=== PATIENT | male | born 1955 | race Caucasian/White ===

== ENCOUNTER 2023-05-10 16:31 | Emergency (ER) | payer OTHER, MEDICARE, SELFPAY ==
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
[2023-05-10 17:18] VITALS: BP 168/75; PULSE 76; RESP 18; TEMP 36.6; O2SAT 97
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
[2023-05-10 18:48] VITALS: BP 145/85; PULSE 77; RESP 15; O2SAT 98
[2023-05-10 18:49] VITALS: BP 145/85; PULSE 80; RESP 14; TEMP 36.8; O2SAT 98
[2023-05-10 19:56] LABS: Estimated Glomerular Filt Rate > 60
[2023-05-10 20:52] VITALS: BP 164/92; PULSE 77; RESP 15; TEMP 36.7; O2SAT 99
== END 2023-05-10 20:53 | disposition home or self-care (01) ==
PROVIDERS: Emergency Provider Physician Assistant; PCP Physician Assistant
DX: S22.42XA Multiple fractures of ribs, left side, initial encounter for closed fracture (principal); M54.2 Cervicalgia; R51.9 Headache, unspecified; M25.512 Pain in left shoulder; V49.40XA Driver injured in collision with unspecified motor vehicles in traffic accident, initial encounter; Y92.488 Other paved roadways as the place of occurrence of the external cause
CPT/HCPCS: 70450; 71046; 71110; 71260; 72125; 73030; 73600; 73630; 74177; 99284; Q9967

== ENCOUNTER 2023-06-14 11:54 | Outpatient (CLI) | payer MEDICARE, OTHER, SELFPAY ==
--- NOTE | ~2023-06-14 | CT_ITS ---
EXAMINATION: CT wrist RT wo con DATE: 06/14/2023 12:07 INDICATION: Right wrist pain TECHNIQUE: High resolution computed tomography (CT) of the right wrist was performed without intraven ous contrast. Additional sagittal and coronal reconstructions were performed. Automated exposure cont rol and iterative reconstruction technique were employed. The dose-length product was 91.61 mGy-cm. COMPARISON: None FINDINGS: Postoperative change of prior first carpal metacarpal suspension arthroplasty with resection of the t rapezium and likely partial resection of the trapezoid. There are some small residual bone fragments at the resection bed. The base of the first metacarpal has migrated proximally and articulates with t he distal pole of the scaphoid with severe secondary osteoarthritis with subarticular cystlike change s at both sides of the articulation. Attempted arthrodesis across the base of the second and third metacarpals with compression screw fixa tion but without evident osseous bridging. There is severe osteoarthritis at the articulation between the base of the second metacarpal and the adjacent distal capitate and base of the third metacarpal. No acute fractures. Additional polyarticular osteoarthritis, moderate severity at the distal radiouln ar and fourth metacarpophalangeal joints and mild at the wrist, midcarpal, first interphalangeal and remaining metacarpophalangeal joints. IMPRESSION: 1. Postoperative change of prior first carpal metacarpal suspension arthroplasty with resection of th e trapezium and partial resection of the trapezoid. 2. Proximal migration of the first metacarpal base into the resection bed with severe secondary arthr itis at its articulation with the distal pole of the scaphoid. 3. Attempted instrumented arthrodesis across the base of the second and third metacarpals which appea rs to remain ununited with severe osteoarthritis at the articulations of the second metacarpal base w ith the capitate and third metacarpal. 4. Additional mild to moderate polyarticular osteoarthritis at the right hand and wrist as detailed a mayra. Reviewed, dictated and finalized at location A. IMPRESSION: 1. Postoperative change of prior first carpal metacarpal suspension arthroplast y with resection of the trapezium and partial resection of the trapezoid. 2. Proximal migration of the first metacarpal base into the resection bed with severe secondary arthritis at its articulation with the distal pole of the scap hoid. 3. Attempted instrumented arthrodesis across the base of the second and third m etacarpals which appears to remain ununited with severe osteoarthritis at the a rticulations of the second metacarpal base with the capitate and third metacarp al. 4. Additional mild to moderate polyarticular osteoarthritis at the right hand a nd wrist as detailed above.
== END 2023-06-14 11:55 ==
DX: M18.11 Unilateral primary osteoarthritis of first carpometacarpal joint, right hand (principal); M19.041 Primary osteoarthritis, right hand
CPT/HCPCS: 73200

== ENCOUNTER 2023-08-23 14:45 | Emergency (ER) | payer MEDICARE, OTHER, SELFPAY ==
[2023-08-23] VITALS (8 sets, daily range): BP systolic 148–180; BP diastolic 78–95; PULSE 65–90; RESP 10–18; TEMP 36.9; O2SAT 98–100
--- NOTE | ~2023-08-23 | CT_ITS ---
EXAMINATION: CT abdomen pelvis w con DATE: 08/23/2023 18:01 INDICATION: right sided abd pain, flank pain TECHNIQUE: Computed tomography (CT) of the abdomen and pelvis was performed with 100 mL Omnipaque-350 intravenous contrast. Automated exposure control and iterative reconstruction technique were employe d. The dose-length product was 224.48 mGy-cm. COMPARISON: CT cap 05/10/2023; CT abdomen pelvis 05/06/2018. FINDINGS: Lower thorax: Stable right lower lobe granuloma. Liver: Normal. Biliary/Gallbladder: Gallbladder is absent. Mild extrahepatic bile duct dilation likely related to ch olecystectomy. Pancreas: Mild atrophy. Spleen: Normal. Adrenals:No mass. Kidneys: Moderate right perinephric stranding, mild right hydronephrosis, delayed right nephrogram. M ultiple punctate nonobstructing right calculi. Normal left kidney. GI tract: Surgical clips at the GE junction. No small or large bowel dilation. Normal appendix. Mesentery/Peritoneum: No ascites, mass, or free air. Retroperitoneum: No mass. Atherosclerotic abdominal aortic and/or arterial calcifications. Pelvis: Mild bladder wall thickening in a moderately distended urinary bladder. Mild prostatomegaly. 3 mm calcification in the distal right UVJ. Soft Tissues: Soft tissues and body wall unremarkable. Bones: No acute osseous finding. IMPRESSION: 3 mm right UVJ stone causing mild obstructive uropathy. Cystitis versus wall thickening from chronic outlet obstruction. Correlate with urinalysis. Reviewed, dictated and finalized at location K.
--- NOTE | 2023-08-23 17:14 | ED.ABDPAIN ---
HPI - Abdominal Pain General Chief Complaint: Urogenital-Male Stated Complaint: r flank pain, r testicle pain Time Seen by Provider: 08/23/23 17:03 Source: patient Mode of arrival: ambulatory Limitations: no limitations History of Present Illness HPI narrative: This 67-year-old male that presents to the emergency department for right-sided abdominal pain. Ongoing intermittently over the last couple of days. Reports worsening after going on a walk today. The pain radiates from his right flank, to his right lower quadrant into his testicle sometimes. Associated with nausea. Denies fevers, vomiting, dysuria, or hematuria. Related Data Allergies Allergy/AdvReac Type Severity Reaction Status Date / Time No Known Allergies Allergy Verified 05/10/23 18:48 Review of Systems Review of Systems: CONSTITUTIONAL: Denies fever GASTROINTESTINAL: Reports abdominal pain, nausea. Denies vomiting GENITOURINARY: Denies dysuria or hematuria. All systems reviewed & are unremarkable except as noted in HPI and below PMFSH Past Medical History Medical History (Updated 08/23/23 @ 20:41 by Graciela Thomas PA-C) Dyslipidemia History of hypothyroidism Family History Family History (Updated 06/24/18 @ 13:46 by DOCTOR UNKNOWN) Father Family history of malignant neoplasm Family history of alcoholism Mother Family history of kidney disease Family history of Alzheimer's disease Family history of congestive heart failure Hypertension Other Family history of allergic disorder Social History Social History Smoking status: Never smoker Alcohol intake: current Exam Narrative: GENERAL: Well-appearing, well-nourished, and in no acute distress. HEAD: Normocephalic, atraumatic. EYES: EOMI. CHEST: Clear to auscultation. No respiratory distress. No wheezes rales or rhonchi HEART: Regular rate and rhythm. No murmur heard. Normal peripheral pulses. ABDOMEN: Soft, nontender, nondistended, normal active bowel sounds. No CVA tenderness EXTREMITIES: Normal range of motion. No edema. SKIN: Warm, dry, no rash. NEURO: No focal deficits. Alert and oriented x3. PSYCH: Normal mood and affect Course Course Emergency Course: patient updated on his workup and agrees with plan of care Vital Signs Vital signs: Vital Signs Temperature 98.4 F 08/23/23 14:48 Pulse Rate 90 08/23/23 14:48 Respiratory Rate 17 08/23/23 14:48 Blood Pressure 180/95 H 08/23/23 14:48 Pulse Oximetry 99 08/23/23 14:48 Oxygen Delivery Room Air 08/23/23 14:48 Temperature 98.4 F 08/23/23 14:48 Pulse Rate 67 08/23/23 16:47 Respiratory Rate 15 08/23/23 16:47 Blood Pressure 164/82 H 08/23/23 16:47 Pulse Oximetry 99 08/23/23 16:47 Oxygen Delivery Room Air 08/23/23 14:48 MDM - Abdominal Pain MDM Narrative Medical decision making narrative: Patient presents to the emergency department for right-sided flank and abdominal pain. Ongoing intermittently over the last couple of days. He is afebrile and nontoxic appearing. Hypertensive upon arrival, this improved with management of his pain. CBC and metabolic panel without concerning findings. Urine without evidence of infection. CT abdomen and pelvis shows a 3 mm stone at the right UVJ. Patient was updated on his workup and agrees with plan of care. Reports relief after IV fluids and morphine. Will be given follow-up with urology. He was given warnings to return to the ER Patient did experience some epigastric discomfort while in the ED. This was relieved with a GI cocktail. EKG without acute ST changes and his baseline troponin is negative Differential Diagnosis Differential diagnosis: Likely acute appendicitis, calculus of kidney and other (GERD, esophagitis) Lab Data Attestation: I reviewed the patient's lab results. 08/23/23 17:22 08/23/23 17:22 Labs: Lab Results 08/23/23 08/23/23 08/23/23 Range/Units 17:13 17:22
[2023-08-23 17:20] LABS: Appearance Urine Clear (Clear); Bilirubin Urine Negative (Negative); Blood Urine Negative (Negative); Color Urine Yellow (Yellow); Glucose Urine UA Negative (Negative); Ketones Urine Negative (Negative); Leukocyte Esterase Ur Negative LEU/UL (Negative); Nitrate Urine Negative (Negative); Protein Urine Negative (Negative); Specific Grav Ur 1.016 (1.001-1.035); pH Urine 6.5 (5.0-9.0)
--- NOTE | 2023-08-23 17:25 | PC.NURSE ---
Patient drinks 10-12 beers a day along with multiple shots of whiskey. patient reports last drink as last night around 9 or 10 pm
[2023-08-23 17:30] LABS: Basophils Absolute Auto 0.1 K/mm3 (0.0-0.1); Basophils Percent Auto 0.6 % (0.2-1.2); Eosinophils Percent Auto 0.4 % (0-4.4); Hematocrit 45.3 % (42.0-52.0); Hemoglobin 16.5 g/dL (14.0-18.0); Immature Granulocyte Absolute 0.03 K/mm3 (0.00-0.031); Immature Granulocyte Percent A 0.3 % (0-0.5); Immature Platelet Fraction Pct 2.2 % (0.9-11.2); Lymphocytes Absolute Auto 0.65 K/mm3 (0.9-3.2); Lymphocytes Percent Auto 7.3 % (18.3-44.2); Mean Corpuscular HGB Conc 36.4 g/dl (32-36); Mean Corpuscular Hemoglobin 31.4 pg (26-34); Mean Corpuscular Volume 86.3 fl (80-100); Mean Platelet Volume 9.3 fl (7.4-10.4); Monocytes Absolute Auto 0.7 K/mm3 (0.1-0.6); Monocytes Percent Auto 7.5 % (2.6-8.5); Neutrophils Absolute Auto 7.5 K/mm3 (1.3-6.7); Neutrophils Percent Auto 83.9 % (45.5-73.1); Platelet Count Result 152 k/mm3 (150-375); Red Blood Count 5.25 M/mm3 (4.6-6.20); Red Cell Distribution Width 12.4 % (11.5-14.5); White Blood Count 8.9 K/mm3 (4.5-10.0)
[2023-08-23 17:39] LABS: Alanine Aminotransferase 48 U/L (6-50); Albumin Level 4.8 g/dL (3.5-5.1); Alkaline Phosphatase 72 U/L (38-126); Anion Gap 7 mmol/L (4-12); Aspartate Amino Transferase 54 U/L (17-59); Bilirubin,Total 1.7 mg/dL (0.2-1.3); Blood Urea Nitrogen 23 mg/dL (9-20); Calcium 9.4 mg/dL (8.4-10.2); Carbon Dioxide 28 mmol/L (22-30); Chloride 102 mmol/L (98-107); Estimated CRCL calculation 58 ml/min; Estimated Glomerular Filt Rate > 60; Glucose 107 mg/dL (65-110); Lipase 74 U/L (23-300); Potassium 4.2 mmol/L (3.4-5.0); Sodium 137 mmol/L (137-145)
[2023-08-23 17:44] LABS: Add Urine Microscopic? NO
[2023-08-23] MEDS: ONDANSETRON INJ 4 MG/2 ML VIAL IV PUSH (18:08)
[2023-08-23] MEDS: SODIUM CHLORIDE 0.9% IV 1,000 ML 999 ML IV CONT (18:09)
[2023-08-23] MEDS: MORPHINE SULFATE (*CRX) 4 MG/ML INJ IV PUSH (18:09)
--- NOTE | 2023-08-23 18:45 | ECG_ITS ---
Test Date: 2023-08-23 18:52:55 Measurements Intervals Girard Rate: 72 P: 68 SD: 162 QRS: 51 QRSD: 81 T: 49 QT: 365 QTc: 401 Interpretive Statements SINUS RHYTHM NORMAL ECG No previous ECG available for comparison Electronically Signed On 08-23-2023 20:27:11 CDT by Jeramy Owens D.O.
[2023-08-23] MEDS: PANTOPRAZOLE SODIUM IV 40 MG VIAL IV PUSH (19:15)
[2023-08-23] MEDS: BELLADONNA ALK/PHENOB ELIX 10 ML, MAG HYDROX/ALUMINUM HYD/SIMETH 30 ML, LIDOCAINE HCL 2... PO (19:54)
[2023-08-23 20:11] LABS: Troponin I < 0.012 ng/mL (0.000-0.034)
== END 2023-08-23 21:00 | disposition home or self-care (01) ==
PROVIDERS: Emergency Provider Physician Assistant; PCP Physician Assistant
DX: N20.0 Calculus of kidney (principal)
CPT/HCPCS: 36415; 74177; 80053; 81003; 83690; 84484; 85025; 85055; 93005; 96361; 96374; 96375; 99284; A9270; J2270; J2405; J2470; J7030; Q9967

== ENCOUNTER 2024-07-13 10:08 | Outpatient (CLI) | payer MEDICARE, OTHER, SELFPAY ==
--- NOTE | ~2024-07-13 | MR_ITS ---
MRI of the cervical spine Clinical History: Spondylosis Technique: Axial T2-weighted and gradient images, and sagittal T1-weighted, T2-weighted, and STIR elida ges were acquired. Findings: No fracture seen. There is 3 mm retrolisthesis of C3 over C4. No suspicious bone marrow sig nal abnormality seen. At C2-C3, there is no disc bulge or herniation. No spinal canal stenosis, cord compression, or neural foraminal narrowing. At C3-C4, there is moderate degenerative disc narrowing with mild disc bulge. No armani spinal canal s tenosis or cord compression. There is moderate right neural foraminal narrowing. Left neural foramen probably preserved. At C4-C5, there is right facet arthropathy with right neural foraminal narrowing. Left neural foramen preserved. No canal stenosis or cord compression. At C5-C6, there is moderate degenerative disc narrowing. There is minimal disc bulge. There is right neural foraminal narrowing and possible minimal left neural foraminal narrowing. No canal stenosis or cord compression. At C6-C7, there is moderate degenerative disc narrowing. No spinal canal stenosis, cord compression, or neural foraminal narrowing. No abnormal signal seen in the spinal cord. Paravertebral soft tissues are unremarkable. Impression: Mild to moderate degenerative change overall, as detailed above. 3 mm retrolisthesis of C3 over C4. Reviewed, dictated and finalized at [facility]. Impression: Mild to moderate degenerative change overall, as detailed above. 3 mm retrolisthesis of C3 over C4.
== END 2024-07-13 10:09 | disposition home or self-care (01) ==
LOC: MICIMG 10:10
PROVIDERS: PCP Physician Assistant; Visit Provider Physician Assistant
DX: M47.812 Spondylosis without myelopathy or radiculopathy, cervical region (principal); M43.12 Spondylolisthesis, cervical region
CPT/HCPCS: 72141

== ENCOUNTER 2024-07-13 16:21 | Outpatient (CLI) | payer MEDICARE, OTHER, SELFPAY ==
--- NOTE | ~2024-07-13 | US_ITS ---
EXAMINATION: US carotid duplex BI DATE: 07/13/2024 17:02 INDICATION: Carotid atherosclerosis TECHNIQUE: Grayscale, color Doppler, and pulsed Doppler images of the cervical carotid arteries were obtained. The degree of vessel stenosis is placed in one of the following categories: normal, <50%, 5 0-69%, >=70% but less than near-occlusion, near-occlusion, or total occlusion. Note that percent sten osis relative to normal distal artery lumen diameter is indirectly measured from velocity measurement s as described by Des, et al. Radiology 2003; [id number]:[id number]. COMPARISON: None. FINDINGS: RIGHT: The right common carotid artery (CCA) peak systolic velocity (PSV) is 89 cm/s. The right internal car otid artery (ICA) PSV is 137 cm/s. The right ICA end-diastolic velocity (EDV) is 29 cm/s. The right I CA/CCA PSV ratio is 1.5. Grayscale and color Doppler images including secondary Doppler criteria yiel d an estimate of <50% diameter reduction from plaque in the ICA. The external carotid artery (ECA) PS V is 104 cm/s. There is antegrade flow in the right vertebral artery. LEFT: The left CCA PSV is 93 cm/s. The left ICA PSV is 68 cm/s. The left ICA EDV is 22 cm/s. The left ICA/C CA PSV ratio is 0.7. Grayscale and color Doppler images yield an estimate of <50% diameter reduction from plaque in the ICA. The ECA PSV is 123 cm/s. There is antegrade flow in the left vertebral artery . IMPRESSION: 1. <50% stenosis in the right internal carotid artery. 2. <50% stenosis in the left internal carotid artery. Reviewed, dictated and finalized at location A.
--- OUTSIDE RECORDS SUMMARY | 2024-07-13 16:38 | XMS_ITS | Clinical Summary ---
Author Organization [facility] Address [address] [place] [address] Care Team Providers Care [employer] Grinder Name Role Phone Gurdeep Escobedo MD Primary Care Provider [phone] Source Comments [facility],non-owned Affiliates and Associated Physician Practices is amultiple site organization consisting of ambulatory clinics and hospital sitesin [place], [place], [place]. This disclosure is being madepursuant to the Care Everywhere program and may not contain all information available regarding this patient. Last updated 17.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 Gender Identity Not on file Sexual Orientation Not on file Plan of Treatment Health Maintenance Due Date Last Done Comments COLOGUARD (AGES 45-75) - COL ON CA SCREENING [address] COLONOGRAPHY - COLON CA SCREENING 1955 FIT - COLON CA SCREENING 1955 FLEX SIG - COLON CA SCREENING 1956 LIPID TESTING 1956 HEPATITIS C SCREENING 09/23/1974 DTAP/TDAP/TD VACCINES (1 - Tdap) 09/28/1975 PNEUMOCOCCAL VACCINE 50+ (1 of 1 - PCV) 2006 ZOSTER VACCINE (1 of 2) 2006 COLONOSCOPY - COLON CA SCREENING 07/01/2015 06/30/2005 (Previously completed) Colorectal Cancer Screening 07/01/2015 COVID-19 VACCINE ( - 2023-2 5 season) 2023 DEPRESSION SCREENING 02/23/2024 INFLUENZA VACCINE (Season Ended) 2024 Respiratory Syncytial Virus (RSV) Vaccine Pt: or over 60 yrs (1 - 1-dose 75+ series) 09/28/2031 HEPATITIS B VACCINE Aged Out No longe r eligible based on patient's age to complete this topic HIB VACCINE Aged Out No longer eligi ble based on patient's age to complete this topic HPV VACCINE Aged Out No longer eligi ble based on patient's age to complete this topic MENINGOCOCCAL (Group B) VACCINE SHARED DECISION-MAKING Aged Out No longer eligible based on patient's age to complete this topic MENINGOCOCCAL GROUPS A/C/Y/W VACCINE Aged Out No longer eligible b ased on patient's age to complete [place] [address] [place] [address] MEDICARE Care Teams [employer]inder Relationship Specialty Start Date End Date Gurdeep Escobedo MD [address] [place] [phone] PCP - General Internal Medicine 04/23/15
--- OUTSIDE RECORDS SUMMARY | 2024-07-13 16:38 | XMS_ITS | Data Portability ---
Author Organization [facility] Address [address] [place] [address] Care Team Providers Care Manager Placement Name Role Phone JONATHAN BOOTH Primary Care Provider Unavailab le Assessment No assessment recorded. Plan of Treatment Reminders Order Date Submit Date Provider Last Modified By Organization Details Last Modified Time Details Appointments ANY 15 2024 09:30A M LARON Jennings Not available Not available Not available Lab TSH + free T4, serum 2024 025 [email or web address] [facility], [address], [place], [address], 04/14/2024 10:05:47 TSH + free T4, serum 2023 025 TAMMY Sanabria, [address], [place], [address], 04/11/2024 09:08:20 BMP, serum or plasma 2023 024 TAMMY Sanabria, [address], [address], [place], [address], 07/23/2023 10:14:12 TSH + free T4, serum 2023 024 TAMMY Sanabria, [address], [address], [place], [address], 07/23/2023 10:14:11 TSH + free T4, serum 2023 024 TAMMY Sanabria, [address], [address], [place], [address], 01/11/2024 07:37:36 Referral None recorded. Procedures None recorded. Surgeries None recorded. Imaging CT, chest, w/o contrast 2023 024 [facility] (Imaging), [address], [place], [address], 11/09/2023 16:15:54 Medication Orders None recorded. Patient TargetsNo targets recorded. Patient InstructionsNo instructions recorded. Reason for Referral None Reported. Results Created Date Observation Date Name Description Value Unit Range Abnormal Flag Note LastModifiedBy Organization Detail LastModifiedTime 07/22/19 24 07/23/2023 TSH+F REE T4 TSH 0.269 uIU/m L 0.450- 4.500 below low normal Not Available [facility] ([facility]) [address] [place], [address], 07/23/2023 10:14:11 07/22/19 24 07/23/2023 TSH+F REE T4 T4,free(dire ct) 1.77 NG/dL 0.82-1 .77 Not Available [facility] ([facility]) [address] [place], [address], 07/23/2023 10:14:11 07/22/19 24 07/23/2023 BMP7+ EGFR glucose 118 mg/dL 70-99 above high normal Not Available [facility] ([facility]) [address] [place], [address], 07/23/2023 10:14:12 07/22/19 24 07/23/2023 BMP7+ EGFR BUN 28 mg/dL 8-27 above high normal Not Available [facility] ([facility]) [address] [place], [address], 07/23/2023 10:14:12 07/22/19 24 07/23/2023 BMP7+ EGFR creatinine 0.72 mg/dL 0.76-1 .27 below low normal Not Available [facility] ([facility]) [address] [facility], [place], [address], 07/23/2023 10:14:12 07/22/19 24 07/23/2023 BMP7+ EGFR eGFR 101 mL/mi n/1.7 3 >59 Not Available [facility] ([facility]) [address] [facility], [place], [address], 07/23/2023 10:14:12 07/22/19 24 07/23/2023 BMP7+ EGFR sodium 138 mmol/ L 134-14 4 Not Available [facility] ([facility]) [address] [facility], [place], [address], 07/23/2023 10:14:12 07/22/19 24 07/23/2023 BMP7+ EGFR potassium 4.4 mmol/ L 3.5-5. 2 Not Available [facility] ([facility]) [address] [place], [address], 07/23/2023 10:14:12 07/22/19 24 07/23/2023 BMP7+ EGFR chloride 101 mmol/ L 96-106 Not Available [facility] ([facility]) [address] [facility], [place], [address], 07/23/2023 10:14:12 07/22/19 24 07/23/2023 BMP7+ EGFR carbon dioxide, total 25 mmol/ L 20-29 Not Available [facility] ([facility]) [address] [place], [address], 07/23/2023 10:14:12 11/27/19 24 11/27/2023 Refer ral lab test panel leukocytes [#/volume] in blood by automated count 4.44 text: 4.4 - 11.0 x10'3/ uL WBC 4.44 4.4 - 11.0 x10'3 /uL 11/26 12:22 PM CDT [facility] Not Available Not Available 04/14/2024 09:46:03 11/27/19 24 11/27/2023 Refer ral lab test panel erythrocytes [#/volume] in blood by automated count 5 text: 4.50 - 5.90 x10'6/ uL RBC 5.00 4.50 - 5.90 x10'6 /uL 11/26 12:22 PM CDT [facility] Not Available Not Available 04/14/2024 09:46:03 11/27/1911/27/2023 Refer ral lab test panel hemoglobin [mass/volume ] in blood 15.6 text: 14.0 - 17.5 g/dL HGB 15.6 14.0 - 17.5 G/DL 11/26 12:22 PM CDT [facility] Not Available Not Available 04/14/2024 09:46:03 11/27/1911/27/2023 Refer ral lab test panel hematocrit [volume fraction] of blood 44.6 % low: 41.5%h igh: 50.4% HCT 44.6 41.5 - 50.4 % 11/26 12:22 PM CDT [facility] Not Available Not Available 04/14/2024 09:46:03 11/27/19 24 11/27/2023 Refer ral lab test panel MCV [entitic volume] 89.2 text: 80.0 - 96.0 fL MCV 89.2 80.0 - 96.0 FL 11/26 12:22 PM CDT [facility] Not Available Not Available 04/14/2024 09:46:03 11/27/1911/27/2023 Refer ral lab test panel MCH [entitic mass] 31.2 pg low: 26.5pg high: 31.4pg MCH 31.2 26.5 - 31.4 PG 11/26 12:22 PM CDT [facility] Not Available Not Available 04/14/2024 09:46:03 11/27/1911/27/2023 Refer [facility] test panel MCHC [mass/volume ] 35 text: 31.9 - 34.8 g/dL high MCHC 35.0 (H) 31.9 - 34.8 G/DL 11/26 12:22 PM CDT [facility] Not Available Not Available 04/14/2024 09:46:03 11/27/19 24 11/27/2023 Refer [facility] test panel erythrocyte distribution width [entitic volume] by automated count 12 % low: 12.3%h igh: 14.3% low RDW 12.0 (L) 12.3 - 14.3 % 11/26 12:22 PM CDT [facility] Not Available Not Available 04/14/2024 09:46:03 11/27/19 24 11/27/2023 Refer [facility] test panel platelets [#/volume] in blood 146 text: 151 - 353 x10'3/ uL low PLT 146 (L) 151 - 353 x10'3 /uL 11/26 12:22 PM CDT [facility] Not Available Not Available 04/14/2024 09:46:03 11/27/1911/27/2023 Refer [facility] test panel platelet mean volume [entitic volume] in blood 10.2 text: 9.7 - 11.9 fL MPV 10.2 9.7 - 11.9 FL 11/26 12:22 PM CDT [facility] Not Available Not Available 04/14/2024 09:46:03 11/27/19 24 11/27/2023 Refer [facility] test panel erythrocytes [morphology] in blood by automated count NORMAL RBC MORPH OLOGY DOMONIQUE L 11/26 12:22 PM CDT [facility] Not Available Not Available 04/14/2024 09:46:03 11/27/19 24 11/27/2023 Refer [facility] test panel platelet morphology finding [identifier] in blood NORMAL PLT MORPH . DOMONIQUE L 11/26 12:22 PM CDT [facility] Not Available Not Available 04/14/2024 09:46:03 11/27/1911/27/2023 Refer [facility] test panel leukocyte morphology finding [identifier] in blood NORMAL WBC MORPH OLOGY DOMONIQUE L 11/26 12:22 PM CDT [facility] Not Available Not Available 04/14/2024 09:46:03 11/27/1911/27/2023 Refer [facility] test panel lymphocytes/ 100 leukocytes in blood by automated count 22.5 % low: 15.8%h igh: 45% LYMPH OCYTE S % 22.5 15.8 - 45.0 % 11/26 12:22 PM CDT [facility] Not [facility] Not Available 04/14/2024 09:46:03 11/27/1911/27/2023 Refer [facility] test panel neutrophils/ 100 leukocytes in blood by automated count 64.5 % low: 42.1%h igh: 71.9% NEUTR OPHIL S % 64.5 42.1 - 71.9 % 11/26 12:22 PM CDT [facility] Not Available Not Available 04/14/2024 09:46:03 11/27/1911/27/2023 Refer [facility] test panel monocytes/10 0 leukocytes in blood by automated count 9.9 % low: 5.7%hi gh: 12.5% MONOC YTES % 9.9 5.7 - 12.5 % 11/26 12:22 PM CDT [facility] Not Available Not Available 04/14/2024 09:46:03 11/27/1911/27/2023 Refer [facility] test panel eosinophils/ 100 leukocytes in blood by automated count 1.8 % low: 0%high : 5.6% EOSIN OPHIL S 1.8 0.0 - 5.6 % 11/26 12:22 PM CDT [facility] Not Available Not Available 04/14/2024 09:46:03 11/27/19 24 11/27/2023 Refer [facility] test panel basophils/10 0 leukocytes in blood by automated count 1.1 % low: 0%high : 1.3% BASOP HILS 1.1 0.0 - 1.3 % 11/26 12:22 PM CDT [facility] Not Available Not Available 04/14/2024 09:46:03 11/27/19 24 11/27/2023 Refer [facility] test panel neutrophils [#/volume] in blood 2.86 text: 1.40 - 6.00 x10'3/ uL ABS. NEUTR OPHIL S 2.86 1.40 - 6.00 x10'3 /uL 11/26 12:22 PM CDT [facility] Not Available Not Available 04/14/2024 09:46:03 11/27/1911/27/2023 Refer [facility] test panel immature granulocytes /100 leukocytes in blood by automated count 0.2 % low: 0%high : 0.5% IMMAT URE GRANS % 0.2 0.0 - 0.5 % 11/26 12:22 PM CDT [facility] Not Available Not Available 04/14/2024 09:46:03 11/27/19 24 11/27/2023 Refer [facility] test panel lymphocytes [#/volume] in blood 1 text: 0.80 - 4.70 x10'3/ uL ABS. LYMPH OCYTE S 1.00 0.80 - 4.70 x10'3 /uL 11/26 12:22 PM CDT [facility] Not Available Not Available 04/14/2024 09:46:03 11/27/19 24 11/27/2023 Refer [facility] test panel glucose [mass/volume ] in serum or plasma 107 text: 70 - 99 mg/dL high GLUCO SE 107 (H) 70 - 99 MG/DL 11/26 6:10 PM CDT [facility] Not Available Not Available 04/14/2024 09:46:03 11/27/19 24 11/27/2023 Refer ral lab test panel urea nitrogen [mass/volume ] in serum or plasma 19 text: 7 - 18 mg/dL high BUN 19 (H) 7 - 18 MG/DL 11/26 6:10 PM CDT [facility] Not Available Not Available 04/14/2024 09:46:03 11/27/19 24 11/27/2023 Refer ral lab test panel creatinine [mass/volume ] in serum or plasma 0.84 text: 0.7 - 1.3 mg/dL CREAT ININE S/P/B 0.84 0.7 - 1.3 MG/DL 11/26 6:10 PM CDT [facility] Not Available Not Available 04/14/2024 09:46:03 11/27/1911/27/2023 Refer ral lab test panel sodium [moles/volum e] in serum or plasma 136 text: 136 - 145 mmol/L SODIU M S/P/B 136 136 - 145 MMOL/ L 11/26 6:10 PM CDT [facility] Not Available Not Available 04/14/2024 09:46:03 11/27/19 24 11/27/2023 Refer ral lab test panel potassium [moles/volum e] in serum or plasma 4.3 text: 3.5 - 5.1 mmol/L POTAS SIUM S/P/B 4.3 3.5 - 5.1 MMOL/ L 11/26 6:10 PM CDT [facility] Not Available Not Available 04/14/2024 09:46:03 11/27/19 24 11/27/2023 Refer ral lab test panel chloride [moles/volum e] in serum or plasma 99 text: 100 - 108 mmol/L low CHLOR DELLA S/P/B 99 (L) 100 - 108 MMOL/ L 11/26 6:10 PM CDT [facility] Not Available Not Available 04/14/2024 09:46:03 11/27/1911/27/2023 Refer ral lab test panel carbon dioxide, total [moles/volum e] in serum or plasma 28.9 text: 21 - 32 mmol/L CO2 28.9 21 - 32 MMOL/ L 11/26 6:10 PM CDT [facility] Not Available Not Available 04/14/2024 09:46:03 11/27/19 24 11/27/2023 Refer ral lab test panel calcium [mass/volume ] in serum or plasma 8.9 text: 8.5 - 10.1 mg/dL CALCI UM S/P/B 8.9 8.5 - 10.1 MG/DL 11/26 6:10 PM CDT [facility] Not Available Not Available 04/14/2024 09:46:03 11/27/1911/27/2023 Refer ral lab test panel bilirubin.to kenton [mass/volume ] in serum or plasma 1.3 text: 0.2 - 1.2 mg/dL high BILIR UBIN TOTAL S/P/B 1.3 (H) 0.2 - 1.2 MG/DL 11/26 6:10 PM CDT [facility] Not Available Not Available 04/14/2024 09:46:03 11/27/19 24 11/27/2023 Refer ral lab test panel protein [mass/volume ] in serum or plasma 6.9 text: 6.4 - 8.2 g/dL TOTAL PROTE IN S/P/B 6.9 6.4 - 8.2 G/DL 11/26 6:10 PM CDT [facility] Not Available Not Available 04/14/2024 09:46:03 11/27/19 24 11/27/2023 Refer ral lab test panel albumin [mass/volume ] in serum or plasma 3.8 text: 3.4 - 5.0 g/dL ALBUM IN S/P/B 3.8 3.4 - 5.0 G/DL 11/26 6:10 PM CDT [facility] Not Available Not Available 04/14/2024 09:46:03 11/27/19 24 11/27/2023 Refer [facility] test panel aspartate aminotransfe rase [enzymatic activity/vol ume] in serum or plasma 34 U/L low: 15U/Lh igh: 37U/L AST 34 15 - 37 U/L 11/26 6:10 PM CDT [facility] ([facility] Not Available Not Available 04/14/2024 09:46:03 11/27/1911/27/2023 Refer [facility] test panel alanine aminotransfe rase [enzymatic activity/vol ume] in serum or plasma 29 U/L low: 16U/Lh igh: 60U/L ALT 29 16 - 60 U/L 11/26 6:10 PM CDT [facility] ([facility] Not Available Not Available 04/14/2024 09:46:03 11/27/19 24 11/27/2023 Refer [facility] test panel alkaline phosphatase [enzymatic activity/vol ume] in serum or plasma 66 U/L low: 50U/Lh igh: 136U/L ALKAL INE PHOSP HATAS E S/P/B 66 50 - 136 U/L 11/26 6:10 PM CDT [facility] () [facility] Not Available Not Available 04/14/2024 09:46:03 11/27/19 24 11/27/2023 Refer [facility] test panel anion gap in serum or plasma 8.1 text: 5 - 15 mmol/L ANION GAP 8.1 5 - 15 MMOL/ L 11/26 6:10 PM CDT [facility] Not Available Not Available 04/14/2024 09:46:03 11/27/19 24 11/27/2023 Refer [facility] test panel urea nitrogen/cre atinine [mass ratio] in serum or plasma 22.6 low: 6high: 26 BUN CREAT ININE RATIO 22.6 6 - 26 11/26 6:10 PM CDT [facility] Not Available Not Available 04/14/2024 09:46:03 11/27/19 24 11/27/2023 Refer ral lab test panel albumin/glob ulin [mass ratio] in serum or plasma 1.2 text: 1.0 - 2.0 ratio A/G RATIO 1.2 1.0 - 2.0 RATIO 11/26 6:10 PM CDT [facility] Not Available Not Available 04/14/2024 09:46:03 11/27/1911/27/2023 Refer ral lab test panel glomerular filtration rate/1.73 sq M.predicted [volume rate/area] in serum, plasma or blood by creatinine-b ased formula (CKD-epi 2020) text: >90 mL/min /1.73 M2 GFR ESTIM ATE >90 >90 ML/GA N/1.7 3 M2 11/26 6:10 PM CDT [facility] Not Available Not Available 04/14/2024 09:46:03 11/27/1911/27/2023 Refer ral lab test panel thyrotropin [units/volum e] in serum or plasma 3.084 text: 0.358 - 3.74 uIU/mL TSH 3.084 0.358 - 3.74 uIU/M L 11/26 6:10 PM CDT [facility] Not Available Not Available 04/14/2024 09:46:03 11/27/19 24 11/27/2023 Refer ral lab test panel cholesterol [mass/volume ] in serum or plasma 166 text: <200.0 mg/dL FAY STERO L 166 <200. 0 MG/DL 11/26 6:10 PM CDT [facility] Not Available Not Available 04/14/2024 09:46:03 11/27/19 24 11/27/2023 Refer ral lab test panel triglyceride [mass/volume ] in serum or plasma 25 text: <150 mg/dL TRIGL YCERI NARGIS 25 <150 MG/DL 11/26 6:10 PM CDT [facility] Not Available Not Available 04/14/2024 09:46:03 11/27/19 24 11/27/2023 Refer ral lab test panel cholesterol in HDL [mass/volume ] in serum or plasma 119 text: >40.0 mg/dL HDL 119 >40.0 MG/DL 11/26 6:10 PM CDT [facility] Not Available Not Available 04/14/2024 09:46:03 11/27/1911/27/2023 Refer ral lab test panel cholesterol in LDL [mass/volume ] in serum or plasma by calculation 42 text: <100 mg/dL LDL (CALC ULATE D) 42 <100 MG/DL 11/26 6:10 PM CDT [facility] Not Available Not Available 04/14/2024 09:46:03 11/27/1911/27/2023 Refer ral lab test panel cholesterol non HDL [mass/volume ] in serum or plasma 47 text: <130 mg/dL NON HDL FAY STERO L 47 <130 MG/DL 11/26 6:10 PM CDT [facility] Not Available Not Available 04/14/2024 09:46:03 11/27/1911/27/2023 Refer ral lab test panel cholesterol. total/choles terol in HDL [mass ratio] in serum or plasma 1.4 low: 0high: 4.5 CHOL/ HDL RATIO 1.4 0.0 - 4.5 11/26 6:10 PM CDT [facility] Not Available Not Available 04/14/2024 09:46:03 11/27/19 24 11/27/2023 Refer ral lab test panel cholesterol in VLDL [mass/volume ] in serum or plasma by calculation 5 text: 5 - 55 mg/dL VLDL CALCU LATIO N 5 5 - 55 MG/DL 11/26 6:10 PM CDT [facility] Not Available Not Available 04/14/2024 09:46:03 11/27/1911/27/2023 Refer [facility] test panel service comment LIPID INTER PRETA TION 11/26 6:10 PM CDT [facility] Not Available Not Available 04/14/2024 09:46:03 11/27/1911/27/2023 Refer [facility] test panel interpretati on and review of laboratory results Abnorm al Not Available Not Available 09:46:03 11/27/1911/27/2023 Hemog lobin A1c/H emogl obin. total in Blood hemoglobin A1C/hemoglob in.total in blood 4.7 % high: 5.7% HGB A1C 4.7 <5.7 % 11/26 10:18 PM CDT [facility] ([facility] Not Available Not Available 04/14/2024 09:46:03 11/27/1911/27/2023 Hemog lobin A1c/H emogl obin. total in Blood glucose mean value [mass/volume ] in blood estimated from glycated hemoglobin 88 mg/dL ESTIM ATED AVG GLUCO SE 88 mg/dL 11/26 10:18 PM CDT [facility] Not Available Not Available 04/14/2024 09:46:03 11/27/1911/27/2023 Prost ate speci fic Ag [Mass /volu me] in Serum or Plasm a prostate specific Ag [mass/volume ] in serum or plasma 1.39 text: <4.00 NG/mL PSA 1.39 <4.00 NG/ML 11/26 6:10 PM CDT [facility] Not Available Not Available 04/14/2024 09:46:03 11/27/19 24 11/28/2023 25-Hy droxy vitam in D3+25 -Hydr oxyvi tamin D2 [Mass /volu me] in Serum or Plasm a 25-hydroxyvi tamin D3+25-hydrox yvitamin D2 [mass/volume ] in serum or plasma 120 text: 30 - 100 NG/mL high VITAM IN D 25 HYDRO XY S/P/B 120 (H) 30 - 100 NG/ML 11/27 12:54 AM CDT [facility] Not Available Not Available 04/14/2024 09:46:03 11/27/19 24 11/28/2023 25-Hy droxy vitam in D3+25 -Hydr oxyvi tamin D2 [Mass /volu me] in Serum or Plasm a interpretati on and review of laboratory results Abnorm al Not Available Not Available 09:46:03 01/10/20 24 01/11/2024 TSH+F REE T4 TSH 5.840 uIU/m L 0.450- 4.500 above high normal Not Available [facility] ([facility]) [address] [place], [address], 01/11/2024 07:37:36 01/10/20 24 01/11/2024 TSH+F REE T4 T4,free(dire ct) 1.47 NG/dL 0.82-1 .77 Not Available [facility] ([facility]) [address] [place], [address], 01/11/2024 07:37:36 04/10/19 25 04/11/2024 TSH+F REE T4 TSH 3.020 uIU/m L 0.450- 4.500 Not Available [facility] ([facility]) [address] [place], [address], 04/11/2024 09:08:20 04/10/19 25 04/11/2024 TSH+F REE T4 T4,free(dire ct) 1.38 NG/dL 0.82-1 .77 Not Available [facility] ([facility]) [address] [place], [address], 04/11/2024 09:08:20 07/29/19 24 06/10/2023 CT, shoul aleksandra, w/o contr ast No observ ation record ed. [facility] [address] [facility], [place], [address], 08/05/2023 23:09:40 08/24/19 24 08/23/2023 CT, abdom en + pelvi s, w/o contr ast No observ ation record ed. [place] [id number] [facility] [address], [place], [address], 08/29/2023 14:42:26 11/09/19 24 11/09/2023 CT, chest , w/o contr ast No observ ation record ed. [facility] [address] [place], [address], 11/11/2023 13:28:17 11/25/19 24 11/25/2023 XR, femur No observ ation record ed. [facility] [address] [place], [address], 11/25/2023 22:13:24 06/30/19 25 06/29/2024 XR, cervi raysa spine , 2 or 3 view No observ ation record ed. [facility] [address] [place], [address], 06/30/2024 13:19:11 06/30/19 25 06/29/2024 XR, cervi raysa spine , 2 or 3 view No observ ation record ed. [facility] [address] [place], [address], 06/30/2024 13:19:12 06/30/19 25 06/29/2024 XR, cervi raysa spine , 2 or 3 view No observ ation record ed. [facility] [address] [place], [address], 06/30/2024 13:19:12 Result Notes None recorded. Problems Name Problem SNOMED Code Status Onset Date Resolution Date Notes Provider Name and Address Organization Details Recorded Time Long-term drug therapy Active 2023 LARON Jennings Attn: Eufemiajeff wynne,[address] [facility], [place], [place], [address] [place] [address] 2, [place] [facility] 4 08:56:22 Osteoarthritis 904018283 Active 2023 LARON Jennings Attn: Eufemiajeff wynne,[address] [facility], [place], [place], [address] [place] [address] 2, [place] [facility] 4 08:56:22 Hyperlipidemia 83803379 Active 2023 LARON Jennings Attn: Bernardo ricci,[address] [place], [place], [address] [place] [address] 2, [place] [facility] 4 08:56:23 Hypothyroidism 60758638 Active 2023 LARON Jennings Attn: Bernardo wynne,[address] [place], [place], [address] [place] [address] 2, [place] [facility] 4 08:56:24 Gastroesophage al reflux disease 511979710 Active 2023 LARON Jennings Attn: Bernardo ricci,[address] [place], [place], [address] [place] [address] 2, [place] [facility] 4 08:56:25 Anxiety 45440016 Active 2023 LARON Jennings Attn: Bernardo wynne,[address] [place], [place], [address] [place] [address] 2, [place] [facility] 4 08:56:26 Benign essential hypertension 4975796 Active 2023 LARON Jennings Attn: Bernardo wynne,[address] [place], [place], [address] [place] [address] 2, [place] [facility] 4 08:56:27 Multiple nodules of lung 676568971 Active 2023 LARON Jennings Attn: Bernardo wynne,[address] [place], [place], [address] [place] [address] 2, [facility] - [facility] 4 14:25:04 Body mass index 20-24 - normal 578083526 Active 2024 Sarah Escobedo MA null, [place] - [facility] 5 09:47:50 Problem Notes None recorded. Procedures Surgical History Date Name Laterality Status Provider Name and Address Organization Details Recorded Time Other completed Sarah Escobedo MA [facility] 04/14/2024 09:47:27 Imaging Results Imaging Date Name Status LastModified by Organiz ation Details LastModified Time 06/10/2023 CT, shoulder, w/o contrast completed [address], [address], 08/05/2023 23:09:40 08/23/2023 CT, abdomen + pelvis, w/o contrast completed [address] [place] [address], [address], 08/29/2023 14:42:26 11/09/2023 CT, chest, w/o contrast completed [facility] [address] [place], [address], 11/11/2023 13:28:17 11/25/2023 XR, femur completed [facility] [address] [place], [address], 11/25/2023 22:13:24 06/29/2024 XR, cervical spine, 2 or 3 view completed [facility] [address] [place], [address], 06/30/2024 13:19:11 06/29/2024 XR, cervical spine, 2 or 3 view completed [facility] [address] [place], [address], 06/30/2024 13:19:12 06/29/2024 XR, cervical spine, 2 or 3 view completed [facility] [address] [place], [address], 06/30/2024 13:19:12 Procedure Notes None recorded. Medical Equipment None Reported. Allergies No known drug allergies Medications Name Sig Start Date Stop Date Status Note LastModified by Organization Details LastModified Time cyclobenzap rine 10 mg tablet TAKE 1 TABLET BY MOUTH THREE TIMES A DAY NEEDED FOR MUSCLE SPASMS 07/21 completed Not Available Not Available Not Available amoxicillin 500 mg capsule TAKE 4 CAPSULES BY MOUTH 1 HOUR PRIOR TO APPOINTME NT 04/14 completed Not Available Not Available Not Available clindamycin HCl 300 mg capsule TAKE 1 CAPSULE BY MOUTH FOUR TIMES A DAY 07/21 completed Not Available Not Available Not Available ampicillin 500 mg capsule TAKE 1 CAPSULE BY MOUTH FOUR TIMES A DAY UNTIL GONE 07/21 completed Not Available Not Available Not Available hydrocodone 5 mg-acetamin ophen 325 mg tablet TAKE 1 TABLET BY MOUTH EVERY 4 TO 6 HOURS active Not Available Not Available No t Available amlodipine 2.5 mg tablet Take 1 tablet every day by oral route for 90 days. 02/06 completed Not Available Not Available Not Available amlodipine 5 mg tablet TAKE 1 TABLET BY MOUTH TWICE A DAY active Not Available Not Available No t Available amoxicillin 500 mg tablet 07/21 completed Not Available Not Available Not Available hydrocortis one acetate 25 mg rectal suppository INSERT 1 SUPPOSITO RY RECTALLY NIGHTLY NEEDED FOR HEMORRHOI DS 01/18 completed Not Available Not Available Not Available ketorolac 10 mg tablet active Not Available Not Available Not Available alprazolam 0.5 mg tablet TAKE 1 TABLET BY MOUTH DAILY NEEDED FOR ANXIETY active Not Available Not Available No t Available cephalexin 500 mg capsule TAKE 1 CAPSULE BY MOUTH TWICE A DAY 07/21 completed Not Available Not Available Not Available levothyroxi ne 125 mcg tablet 07/27 completed Not Available Not Available Not Available omeprazole 20 mg capsule,del ayed release Take 1 capsule every day by oral route. 2023 active Not Available Not Available Not Avai lable Drysol Dab-O-Matic 20 % topical solution APPLY A THIN FILM TO THE SKIN DIRECTED 07/21 completed Not Available Not Available Not Available doxazosin 4 mg tablet TAKE 1 TABLET BY MOUTH EVERY DAY active Not Available Not Available No t Available Cortifoam 10 % (80 mg) rectal INSERT 1 APPLICATO R INTO THE RECTUM 2 TIMES A DAY DIRECTED active Not Available Not Available No t Available methylpredn isolone 4 mg tablets in a dose pack TAKE 6 TABLETS ON DAY 1 DIRECTED ON PACKAGE AND DECREASE BY 1 TAB EACH DAY FOR A TOTAL OF 6 DAYS 04/14 completed Not Available Not Available Not Available celecoxib 100 mg capsule TAKE 1 CAPSULE BY MOUTH TWICE DAILY active Not Available Not Available No t Available levothyroxi ne 112 mcg tablet TAKE 1 TABLET BY MOUTH EVERY DAY active Not Available Not Available No t Available amoxicillin 875 mg-potassiu m clavulanate 125 mg tablet TAKE 1 TABLET BY MOUTH EVERY 12 HOURS 04/14 completed Not Available Not Available Not Available rosuvastati n 5 mg tablet TAKE 1 TABLET BY MOUTH EVERY DAY active Not Available Not Available No t Available Vitals Date Recorded Body height Oxygen saturation Oxygen saturation in Arterial blood by Pulse oximetry Heart rate Respiratory rate Body mass index (BMI) Body weight Systolic blood pressure Diastolic blood pressure Provider Name and Address Organization Details Last Updated DateTime 4 175.26 cm 99 % 99 % 72 /min 18 /min 21.1 kg/m2 47916.2 7 g 138 mm[Hg] 72 mm[Hg] Sarah Escobedo MA [facility] 12:15:01 Date Recorded Systolic blood pressure Diastolic blood pressure Provider Name and Address Organization Details Last Updated DateTime 07/22/2023 140 mm[Hg] 70 mm[Hg] LARON Jennings Attn: Accounting,[address] [place], [address], [facility] 07/22/2023 12:37:15 Date Recorded Body height Body mass index (BMI) Body weight Respiratory rate Oxygen saturation Oxygen saturation in Arterial blood by Pulse oximetry Heart rate Systolic blood pressure Diastolic blood pressure Provider Name and Address Organization Details Last Updated DateTime 4 175.26 cm 21.3 kg/m2 63247.3 g 18 /min 98 % 98 % 88 /min 160 mm[Hg] 82 mm[Hg] Sarah Escobedo MA [facility] 09:36:01 Date Recorded Systolic blood pressure Diastolic blood pressure Systolic blood pressure Diastolic blood pressure Provider Name and Address Organization Details Last Updated DateTime 01/19/2024 152 mm[Hg] 90 mm[Hg] 160 mm[Hg] 90 mm[Hg] LARON Jennings Attn: Accounting ,[address] [place], [address] , [facility] 4 10:03:45 Date Recorded Body height Body mass index (BMI) Body weight Oxygen saturation Oxygen saturation in Arterial blood by Pulse oximetry Heart rate Systolic blood pressure Diastolic blood pressure Provider Name and Address Organization Details Last Updated DateTime 5 175.26 cm 21.6 kg/m2 09528.4 9 g 100 % 100 % 61 /min 136 mm[Hg] 82 mm[Hg] Sarah Escobedo MA [facility] 5 09:49:18 Date Recorded Respiratory rate Systolic blood pressure Diastolic blood pressure Provider Name and Address Organization Details Last Updated DateTime 04/14/2024 16 /min 134 mm[Hg] 80 mm[Hg] LARON Jennings Attn: Accounting, [address] [place], [address], [facility] 04/14/2024 10:03:54 Social History Question Answer Notes LastModified by Organizat ion Details LastModified Time Tobacco Smoking Status Former Smoker quit 1977 Sarah Escobedo MA [facility], [facility] 07/21/2023 11:14:30 Do You Have An Advance Directive? Yes Information not available 07/21/2023 Are You Blind Or Do You Have Difficulty Seeing? No Information not available 07/21/2023 What Is Your Level Of Caffeine Consumption? Occasional Decaf-koko ck Coffee Information not available 07/21/2023 In The 14 Days Before Symptom Onset, Have You Had Close Contact With A Laboratory-confir med COVID-19 While That Case Was Ill? No Information not available 07/21/2023 In The 14 Days Before Symptom Onset, Have You Had Close Contact With A Person Who Is Under Investigation For COVID-19 While That Person Was Ill? No Information not available 07/21/2023 Have You Been To An Area Known To Be High Risk For COVID-19? No Information not available 07/21/2023 Are You Deaf Or Do You Have Serious Difficulty Hearing? No Information not available 07/21/2023 What Type Of Diet Are You Following? REGULAR Information not available 07/21/2023 Are There Any Guns Present In Your Home? No Information not available 07/21/2023 What Was The Date Of Your Most Recent Tobacco Screening? 04/14/2024 Information not available 04/14/2024 What Is Your Current Pack Years? 20-29packyears Information not available 01/19/2024 What Is Your Relationship Status? Information not available 07/21/2023 Do You Use Your Seat Belt Or Car Seat Routinely? Yes Information not available 07/21/2023 Do You Have Smoke And Carbon Monoxide Detectors In Your Home? Yes Information not available 07/21/2023 How Much Tobacco Do You Smoke? No Information not available 01/19/2024 Do You Use Sunscreen Routinely? Yes Information not available 07/21/2023 Has Tobacco Cessation Counseling Been Provided? Yes Information not available 07/21/2023 On What Date Was Tobacco Cessation Counseling Provided? 04/14/2024 Information not available 04/14/2024 Sex: Male Functional Status Question Answer Note LastModified by Organizat ion Details LastModified Time Do you use any illicit or recreational drugs? No Information not available 07/22/2023 Do you or have you ever used any other forms of tobacco or nicotine? No Information not available 01/19/2024 What is your level of alcohol consumption? Moderate beer/bour bon Information not available 07/21/2023 Are you currently employed? No Information not available 07/21/2023 Are you able to care for yourself? Yes Information not available 07/21/2023 Mental Status None recorded. Family History Relationship Description Onset Age of this Age Resolved Age Notes LastModified by Organization Details LastModified Time Father Harmful pattern of use of alcohol [email or web address] Not available 2023 13:02:02 Father Hypercholest erolemia tcarterma Not available 2023 13:02:17 Father Malignant neoplasm of prostate tcarterma Not available 2023 13:02:44 Brother Harmful pattern of use of alcohol tcarterma Not available 2023 13:02:02 Brother Malignant neoplasm of prostate tcarterma Not available 2023 13:02:44 Mother Hypertensive disorder tcarterma Not available 2023 13:02:09 Mother Hypercholest erolemia tcarterma Not available 2023 13:02:17 Mother Kidney disease tcarterma Not available 2023 13:02:23 Medical History Condition Response Coronary Artery Disease N Other N Atrial Fibrillation N High Blood Pressure N Thyroid Problems Y Kidney or Bladder Problems N Depression N COPD N Blood Clots N GI Problems N Skin Problems N Anemia N Heart Attack (GA) N Diabetes N Anxiety Disorder N Muscle, Joint, or Bone Problems N Seizures/Epilepsy N Acid Reflux (GERD) Y Cancer N Stroke N Allergies N Asthma N High Cholesterol Y Hepatitis N Liver Disease N Headaches N Osteoporosis N Heart Failure N Immunizations Vaccine Type Date Status Note Provider Nam e and Address Organization Details Recorded Time zoster recombinant 09/16/2017 [place] 01/19/2024 09:30:32 influenza, unspecified formulation 12/09/2013 [place] 01/19/2024 09:30:32 influenza, unspecified formulation 01/06/2012 [place] 01/19/2024 09:30:32 zoster live 04/18/2017 [place] 01/19/2024 09:30:32 zoster live 08/13/2016 [place] 01/19/2024 09:30:33 Past Encounters Encounter ID Performer Location Encounter Start Date Encounter Closed Date Diagnosis/Indication Diagnosis SNOMED-CT Code Diagnosis ICD10 Code Diagnosis Note [id number] Tariq Virgen MD [facility] - [place] [address] [place] [address] 07/22/2023 12:01:53 07/22/2023 14:25:34 Benign essential hypertension 9986289 I10 stable on amlodipine 2.5mg bid. Anxiety 79653388 F41.9 stable on PRN alprazolam Gastroesop hageal reflux disease 126999106 K21.9 continue omeprazole 40mg daily and add pepcid AC at supper time for now. CUT down on alcohol consumptio n Hypothyroidism 95604198 E03.9 stable on thyroid supplement . order TFT labs because his work wellness panel does not include that. Hyperlipidemia 17822222 E78.5 stable on rosuvastat in 5mg daily. will have work lab panel in and bring us copies. Long-term drug therapy 972985435 Z79.899 routine bmp due. Osteoarthritis 545757023 M19.90 stable, no acute changes. Multiple n odules of lung 567933007 R91.8 Oct 2023 f/u CT scan chest w/o contrast due to following sizing of pumonary nodules. [id number] Tariq Virgen [facility] [place] [address] [place] [address] 01/19/2024 09:23:24 01/19/2024 10:15:19 Benign essential hypertension 9949109 I10 Boost to 5mg amlodipine 5mg bid. discuss via portal on home readings. Anxiety 84553365 F41.9 Patient has alprazolam 0.5 mg that he takes on a daily basis at this time normally it is p.r.n. Gastroesop hageal reflux disease 578170270 K21.9 continue omeprazole 40mg daily, reflux symptoms are relatively stable though this is exacerbate d by diet and alcohol Hypothyroidism 06592307 E03.9 TSH is around 5.840 but the free T4 is stable at 1.47 we will continue dosing levothyrox ine 112 mcg daily and repeat thyroid function panel in March. Hyperlipidemia 49048031 E78.5 stable on rosuvastat in 5mg daily. Lipids are stable on labs Osteoarthritis 982141800 M19.90 stable, no acute changes. Multiple n odules of lung 009884444 R91.8 Oct 2023 f/u CT scan chest w/o contrast due to following sizing of pulmonary nodules. Long-term drug therapy 640505139 Z79.208 [id number] Tariq Virgen MD [facility] [place] [address] [place] [address] 04/14/2024 09:40:48 04/14/2024 10:08:17 Body mass index 20-24 - normal 378008911 Z68.21 BMI is 21.6 Benign ess ential hypertension 0966358 I10 Blood pressure is 130/80 today on exam. stable on 5mg amlodipine 5mg bid. Continue dosing Anxiety 28479834 F41.9 Patient has alprazolam 0.5 mg that he takes on a daily basis at this time normally it is p.r.n. Gastroesop hageal reflux disease 700576519 K21.9 continue omeprazole 20mg daily, reflux symptoms are relatively stable though this is exacerbate d by diet and alcohol Hypothyroidism 33500776 E03.9 TSH and T4 are normal on labs reviewed today. Next labs will be due in September Hyperlipidemia 00365579 E78.5 stable on rosuvastat in 5mg daily. Lipids are stable on labs and he will get repeat labs in November offered by his [facility]. Osteoarthritis 525889246 M19.90 stable, no acute changes. Multiple n odules of lung 851692101 R91.8 Oct 2023 f/u CT scan chest w/o contrast due to following sizing of pulmonary nodules. Long-term drug therapy 037626758 Z79.899 Health Concerns Section Related Observation LastModified by Organization Detai ls LastModified Time None Recorded Concern Status LastModified by Organization Details LastModified Time None Recorded Advance Directives Directive Y: Payers Encounter Date Sequence Insurance Name Policy Number Policy Tovar Covered Member ID Tovar Member ID Guarantor Name 07/22/2023 1 [place] Tariq Scherer [id number] Tariq Scherer 01/19/2024 1 [place] Tariq Scherer [id number] Tariq Scherer 01/19/2024 2 [employer] - [place] [id number] Tariq Scherer [id number] Tariq Scherer 04/14/2024 1 [place] Tariq Scherer [id number] Tariq Scherer 04/14/2024 2 [employer] - [place] [id number] Tariq [facility] [id number] Tariq [facility] Notes Date Note Type Note Provider Name and Address Organization Details Recorded Time 4 text/html Anxiety/DepressionReported bypatient.Notes:stable, takes PRN of alprazolam 0.5mgReflux/GERDReported bypatient.Notes:reflux has been more active lately, but he's been drinking more alcohol lately. he is still taking omeprazole 40mg daily.ThyroidReported bypatient.Notes:stable on levothyroxine 125mcg daily. due for thyroid labs. Osteoarthritis hx. takes celebrex when needed. Had left total shoulder completed in the last year.pt is having a lot of dental work done. LARON Jennings Attn: Accounting,[address] [place], [address], [facility] 07/22/2023 14:26:47 4 text/html Anxiety/DepressionReported bypatient.Notes:stable, takes PRN of alprazolam 0.5mgHypertensionReported bypatient.Notes:Patient has been taking amlodipine 1 tablet 2.5 mg in the morning and 5 mg in the evening. He is still running high on his blood pressure. He has a lot of stress and he attributes his elevated blood pressure to that.Reflux/GERDReported bypatient.Notes:reflux has been more active lately, but he's been drinking more alcohol lately. he is still taking omeprazole 40mg daily.ThyroidReported bypatient.Notes:stable on levothyroxine 125mcg daily. due for thyroid labs. Osteoarthritis hx. takes celebrex when needed. Had left total shoulder completed in the last year.pt is having a lot of dental work done. LARON Jennings Attn: Accounting,[address] [facility], [place], [address], [facility] 01/24/2024 09:22:50 5 text/html Anxiety/DepressionReported bypatient.Notes:stable, takes PRN of alprazolam 0.5mgHyperlipidemiaReported bypatient.Notes:For cholesterol management patient is taking rosuvastatin 5 mg daily and tolerating this well with no complaintsHypertensionRepor juliane bypatient.Notes:Blood pressure has improved on amlodipine 5 mg dosed twice daily.Reflux/GERDReported bypatient.Notes:Stable on omeprazole 20 mg dailyThyroidReported bypatient.Notes:stable on levothyroxine 112mcg daily. Current labs are up-to-date and normal Osteoarthritis hx. takes celebrex when needed. Had left total shoulder completed in the last year.Patient has also had surgery on his wrist and hand region that has not been taking well and he is still having lot of discomfort. LARON Jennings Attn: Accounting,[address] [place], [address], [facility] 04/24/2024 01:02:32
--- OUTSIDE RECORDS SUMMARY | 2024-07-13 16:38 | XMS_ITS | Encounter Summary ---
Author Organization [facility] Address [address] [place] [address] Phone Care Team Providers Care Earth Science Teacher Name Role Phone Dominique Goode Primary Care Pr ovider Encounter Details Date Type Department Care Team (Late st Contact Info) Description 07/17/2020 Orders Only [facility] Scanning, Provider Social History Tobacco Use Types Packs/Day Years Used Date Smoking Tobacco: Never Smokeless Tobacco: Former Chew Quit: 12/29/2013 Alcohol Use Standard Drinks/Week Comments Yes 49 (1 standard drink = 0.6 oz pu re alcohol) AUDIT-C Answer Date Recorded Frequency of Alcohol Consumption Not on file 11/25/2018 Average Number of Drinks 5 or 6 019 Frequency of Binge Drinking Not on file 05/2018 Sex and Gender Information Value Date Recorded Sex Assigned at Not on file Legal Sex 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 Gender Identity Not on file Sexual Orientation Straight 08/31/2019 3: 48 PM CDT documented as of this encounter Plan of Treatment Not on file documented as of this encounter Procedures Procedure Name Priority Date/Time Associated Diagnosis Comments SCAN - LABS 07/17/2020 documented in this encounter Results * SCAN - LABS (07/17/2020) us Provider Scanning Final Result documented in this encounter Visit Diagnoses Not on filedocumented in this encounter Care Teams Earth Science Teacher Relationship Specialty Start Date End Date Dominique Goode PA PCP - General Physician Wheel Buffer 09/22/18 documented as of this encounter
--- OUTSIDE RECORDS SUMMARY | 2024-07-13 16:38 | XMS_ITS | Encounter Summary ---
Author Organization [facility] Address [address] [place] [address] Phone Care Team Providers Care Gleason Operator Name Role Phone ChetianDominique Primary Care Pr ovider Encounter Details Date Type Department Care Team (Late st Contact Info) Description 08/16/2019 Orders Only [facility] [phone] Scanning, Provider Social History Tobacco Use Types Packs/Day Years Used Date Smoking Tobacco: Never Smokeless Tobacco: Former Chew Quit: 12/29/2013 Alcohol Use Standard Drinks/Week Comments Yes 42 (1 standard drink = 0.6 oz pu re alcohol) AUDIT-C Answer Date Recorded Frequency of Alcohol Consumption Not on file 11/25/2018 Average Number of Drinks 5 or 6 019 Frequency of Binge Drinking Not on file 05/2018 Sex and Gender Information Value Date Recorded Sex Assigned at Not on file 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 Gender Identity Not on file Sexual Orientation Straight 08/31/2019 3: 48 PM CDT documented as of this encounter Plan of Treatment Not on file documented as of this encounter Procedures Procedure Name Priority Date/Time Associated Diagnosis Comments SCAN - RADIOLOGY/IMAGING 08/16/2019 documented in this encounter Results * SCAN - RADIOLOGY/IMAGING (08/16/2019) Anatomical Region Laterality Modality Other us Provider Scanning Final Result documented in this encounter Visit Diagnoses Not on filedocumented in this encounter Care Teams Gleason Operator Relationship Specialty Start Date End Date Menossi, Dominique Susan [place], [place] PCP - General Physician Program Arranger 09/22/18 documented as of this encounter
--- OUTSIDE RECORDS SUMMARY | 2024-07-13 16:38 | XMS_ITS | Clinical Summary ---
Author Organization [facility] Address [address] [place] [id number] Care Team Providers Care Service Station Console Operator Name Role Phone Tylerjesus Dominique LARRY Primary Care Pr ovider Allergies No known active allergies Medications pyridoxine (VITAMIN B-6) 100 mg tabletIndicatio ns:supplement Take 1 tablet (100 mg total) by mouth every morning OTC Active milk this frt xt/milk this frt (MILK THISTLE EXTRACT ORAL)Indication s:supplement Take 1,000 mg by mouth every morning OTC Active ALPRAZolam (XANAX) 0.5 mg tabletIndicatio ns:anxiety,slee p Take 1 tablet (0.5 mg total) by mouth nightly Active rosuvastatin (CRESTOR) 5 mg tabletIndicatio ns:hyperlipidem ia Take 1 tablet (5 mg total) by mouth nightly 0 Active cyanocobalamin (Vitamin B-12) 1,000 mcg tabletIndicatio ns:Prevention of Vitamin B12 Deficiency Take 1 tablet (1,000 mcg total) by mouth every morning Active doxazosin (CARDURA) 4 mg tablet TAKE 2 TABLETS EVERY NIGHT 180 tablet 2 Active docosahexaenoic acid/epa (FISH OIL ORAL)Indication s:supplement Take 1 capsule by mouth daily with lunch Active TURMERIC ORALIndications :supplement Take 1 capsule by mouth every morning Active omeprazole (PriLOSEC) 20 mg capsule TAKE 1 CAPSULE TWICE DAILY 180 capsule 3 4 Active celecoxib (CeleBREX) 100 mg capsuleIndicati ons:Pain Take 1 capsule (100 mg total) by mouth 2 (two) times a day Active simethicone (MYLICON) 125 mg chewable tablet Take 1 tablet (125 mg total) by mouth every 6 (six) hours as needed (for bloating) 30 tablet 11 4 Active levothyroxine (SYNTHROID) 112 mcg tabletIndicatio ns:hypothyroidi sm Take 1 tablet (112 mcg total) 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 4 Active amoxicillin 500 mg tablet/capsuleI ndications:Prop hylaxis, Medical TAKE 4 CAPSULES BY MOUTH 1 HOUR PRIOR TO DENTAL PROCEDURE 4 tablet/capsu le 3 4 Active Additional Information Patient not taking.Informant: Self, Reported on 04/26/2024 CALCIUM-MAGNESI UM-ZINC ORALIndications :supplement Take 1 tablet by mouth 2 (two) times a day Active amLODIPine (NORVASC) 5 mg tablet 4 Active hydrocortisone (PROCTOCORT) 10 % (80 mg) rectal foamIndications :rectal bleeding Insert 1 applicator into the rectum 2 (two) times a day Use as directed 15 g 5 Active Active Problems Problem Noted Date Diagnosed Date Rectal bleeding 04/26/2024 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 He did not respond to a FODMAP diet but did beautifully on Xifaxan. We will offer him another course of Xifaxan and would recommend that he try adding a probiotic after he has completed this to see if this can maintain his gut teresa. He may also wish to add soluble fiber supplement like Benefiber to stiff in his stools. In the past he has drink a lot of beer which likely contributes to his symptoms. Even though he did not notice an enormous change when he cut back in the past, this may improve after the Xifaxan. If his symptoms return rapidly after the Xifaxan, we did discuss the possibility of chronic low-dose doxycycline. He may also benefit from a neuromodulator. Incisional hernia, without obstruction or gangre ne 02/21/2020 Overview (02/21/2020): Added automatically from request for surgery [id number] Unilateral inguinal hernia without obstruction o r gangrene 02/21/2020 Overview (02/21/2020): Added automatically from request for surgery [id number] Gas bloat syndrome 01/10/2020 Bloating 01/10/2020 Overview (01/10/2020): Added automatically from request for surgery [id number] Assessment & Plan (12/28/2020 11:20 AM CDT): In addition to the Xifaxan, the patient can try Gas-X, Beano, and cutting back on get any beverage containing bubbles (soda and beer) Diarrhea 01/10/2020 Overview (01/10/2020): Added automatically from request for surgery [id number] Abdominal pain 01/10/2020 Overview (01/10/2020): Added automatically from request for surgery [id number] Colon cancer screening 01/10/2020 Overview (01/10/2020): Added automatically from request for surgery [id number] Impingement syndrome of right wrist 12/08/2019 Overview (12/08/2019): Added automatically from request for surgery [id number] Arthritis of carpometacarpal (CMC) joint of righ t thumb 12/20/2018 Overview (12/20/2018): Added automatically from request for surgery [id number] Bilateral inguinal hernia without obstruction or gangrene 12/08/2018 Overview (12/08/2018): Added automatically from request for surgery [id number] Shoulder joint pain 07/21/2018 Hyperlipidemia 06/30/2018 Porokeratosis 04/05/2018 Arthritis 04/22/2017 Pain in shoulder 11/15/2015 Chronic pain 11/21/2012 Sciatica 11/21/2012 Piriformis syndrome 11/21/2012 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 Hypothyroidism 11/11/2012 Lumbago 06/11/2011 Pain in pelvis 06/11/2011 Pain in extremity 06/02/2011 Arthralgia of hip 05/01/2011 Encounters Date Type Department Care Team Description 06/20/2024 10:00 AM CDT - 06/20/2024 10:45 AM CDT Surgery [facility] [address] [address] Kye Mims MD COLONOSCOPY 06/20/2024 9:27 AM CDT Anesthesia Event [address] [address] Alma Grajeda MD Stephan, Jennifer Stephanie, SHARLENE 06/20/2024 8:37 AM CDT - 06/20/2024 10:50 AM CDT Hospital Encounter [facility] [address] [address] Kye Mims MD Discharge Disposition: Discharge to home or self care 06/14/[address] [facility] [address] [place] [phone] Chel Kaye RN 06/13/[address] [facility] [address] [place] [phone] Chel Kaye RN GI PROCEDURE 7 DAY PRE CALL 04/26/2024 1:30 PM CUSTOMER ASSISTANCE ASSOCIATE Office Visit [facility] [address] [place] [address] [facility] [address] [place] [address] [place] [address] Kye Mims MD Rectal bleeding (Primary Dx); Diarrhea, unspecified type; Colon cancer screening 04/26/2024 Telephone [facility] [address] [facility] [address] [place] [address] [place] [address] Jeana Rivas RN GI Pre-procedure assessment 06/20/24 from Last 3 Months Immunizations Immunization Administration Dates Next Due Influenza, Quadrivalent, Spl it, Intramuscular 12/09/2019 Influenza, Unspecified 11/27/2023,12/09/2013, ZOSTER LIVE 04/18/2017,08/13/2016 ZOSTER Recombinant 09/16/2017 Surgical History Surgery Date Site/Laterality Comments SHOULDER SURGERY 02/22/2005 - 02/21/2006 Left rebuilt shoulder 2005, tightened everything in shoulder- 2015 DIANNE FUNDOPLICATION 08/19/2018 CHOLECYSTECTOMY 02/22/2009 - 02/21/2010 WRIST SURGERY 02/01/2020 Right with cast LAPAROSCOPIC INGUINAL HERNIA REPAIR 02/10/2019 Left Lap left ing HR w/mesh ELBOW SURGERY 02/22/1993 - 02/21/1994 Right ESOPHAGOGASTRODUODENOSCOPY last one 02/09/2020 INGUINAL HERNIA REPAIR 02/27/2020 Right with mesh, incisional hernia repair, abdominal wall reconstruction COLONOSCOPY last one 02/09/2020 THUMB SURGERY 01/02/2019 Right HIP SURGERY Left x2, 2011 and 2018 TOTAL SHOULDER REPLACEMENT 03/01/2022 Left PROSTATE BIOPSY 09/26/2021 Medical History Medical History Date Comments BPH (benign prostatic hyperplasia) well controlled with meds Hyperlipidemia well controlled with meds GERD (gastroesophageal reflux disease) well controlled with meds Hypothyroidism well controlled with meds Arthritis Inguinal hernia bilat--to be rep aired 01/2019 Heavy drinker 6-7 beers per da y OA (osteoarthritis) History of Escobedo's esophagus Hypertension Chronic diarrhea Rectal bleeding Colon polyp Family History Medical History Relation Name Comments Alcohol abuse Father Homar Scherer Family history of alcoholism - (Added by TW Conv) Cancer Father Homar Scherer Hearing loss Father Homar Scherer Thyroid disease Maternal Grandmother Ginger Cardozo Alzheimer's disease Mother Glendy Scherer Arthritis Mother Glendy Scherer Family history of arthritis - (Added by TW Conv) Hypertension Mother Glendy Scherer Family history of hypertension - (Added by TW Conv) Kidney disease Mother Glendy Scherer Memory loss Mother Glendy Scherer Anesthesia problems Neg Hx Malig Hyperthermia Neg Hx Pseudochol deficiency Neg Hx Relation Name Status Comments Father Homar Scherer Maternal Grandmother Ginger Cardozo Alive Mother Glendy Scherer Social History Tobacco Use Types Packs/Day Years Used Date Smoking Tobacco: Former Cigarettes 0.1 4 1 975 - 1978 Passive Smoke Exposure: Never Smokeless Tobacco: Former Chew Quit: 2013 Tobacco Cessation:Counseling Given: Not Answered Alcohol Use Standard Drinks/Week Comments Yes 49 (1 standard drink = 0.6 oz pu re alcohol) AUDIT-C Answer Date Recorded Q1: How often do you have a drink containing alcohol? 4 or more times a week 06/20/2024 Q2: How many drinks containi ng alcohol do you have on a typical day when you are drinking? 5 or 6 Q3: How often do you have si x or more drinks on one occasion? Daily or almost daily 06/20/2024 Personal Safety Answer Date Recorded Have you ever been in or are you currently in a harmful physical or emotional relationship or is someone making you feel afraid or unsafe? Denies 06/20/2024 Sex and Gender Information Value Date Recorded Sex Assigned at Not on file Legal Sex Male 1:09 PM CUSTOMER ASSISTANCE ASSOCIATE Gender Identity Not on file Sexual Orientation Straight 08/31/2019 3: 48 PM CDT Obstetrics History Last Filed Vital Signs Vital Sign Reading Time Taken Comments Blood Pressure 130/69 06/20/2024 10:25 AM CDT Pulse 60 06/20/2024 10:25 AM CDT Temperature 36 C (96.8 F) 06/20/2024 10:05 AM CDT Respiratory Rate 17 06/20/2024 10:25 AM CDT Oxygen Saturation 100% 06/20/2024 10:25 AM CDT Inhaled Oxygen Concentration - - Weight 66.7 kg (147 lb) 06/20/2024 8:48 AM CDT Height 175.3 cm (5' 9 ) 06/20/2024 8:48 AM CDT Body Mass Index 21.71 06/20/2024 8:48 AM CDT Plan of Treatment Health Maintenance Due Date Last Done Comments Depression Screening 1955 Hepatitis C Screening 1955 DTaP/Tdap/Td Vaccine (1 - Tdap) 09/28/1967 Hepatitis B Screening 1974 Pneumococcal vaccine 65+ (1 of 1 - PCV) 2006 Zoster Vaccine (3 of 3) 11/11/2017 09/17/19 18, 04/18/2017, 08/13/2016 Abdominal Aortic Aneurysm (A AA) Screen 2021 Well Visit 65+ 2021 Prostate Cancer Screening-PSA 08/05/2023, 06/24/2021, 05/27/2021 Fall Risk Assessment 06/20/2025 06/20/2024 Colon Cancer Screening-Colonoscopy 06/20/2034 06/20/2024, 02/09/2020 Influenza Vaccine Completed 11/27/2023, , 12/09/2013, Additional history exists Colon Cancer Screening-CT Colonography Discontinued 06/20/2024, 02/09/2020 Colon Cancer Screening-DNA Stool Discontinued 06/21/19, 02/09/2020 Colon Cancer Screening-FIT Discontinued 06/20/2024, Colon Cancer Screening-Sigmoidoscopy Discontinued 06/20/2024, 02/09/2020 Medical Devices Implanted Type Area Business Development Device Identifier Shelf Expiration Date Model / Serial / Lot Davol Inc/C R Bard [id number] Bard Marlex 6x6in Monofilament Gold Standard Flat Sheet Groin - [id number] Implanted:Qty: 1 on 02/27/2020 by Kevin Oliva MD at [facility] Mesh N/A: Abdomen Davol Inc/C R Bard [id number] 07/19/2024 [id number] / / 6 Davol Inc/C R Bard [id number] Soft Mesh 6x6in Patch Knitted Flat Sheet Groin Hernia Square Mesh - [id number] Implanted:Qty: 1 on 02/27/2020 by Kevin Oliva MD at [facility] Mesh N/A: Abdomen Davol Inc/C R Bard [id number] 08/19/2024 [id number] / / [id number] Acumed Inc At2-M26-S Acutrak 2 26mm Wrist Hand Ankle Foot Mini Screw Bone Nonsterile - [id number] Implanted:Qty: 1 on 02/01/2020 by Thony Upton MD at [facility] Screw Right: Hand [employer] Inc AT2-M26-S / / Arthrex Inc Ar-8978-Cp Internalbrace Kit Hand Wrist Set Implant Ligament Augmentation - S00 - [id number] Implanted:Qty: 1 on 01/02/2019 by Thony Upton MD at [facility] Right: Wrist Arthrex Inc 10/23/2023 AR-8978-C P / 00 / [id number] Davol Inc/C R Bard [id number] Soft Mesh 6x6in Patch Knitted Flat Sheet Groin Hernia Square Mesh - [id number] Implanted:Qty: 1 on 02/10/2019 by Kevin Oliva MD at [facility] Left: Abdomen Davol Inc/C R Bard 10/20/2023 [id number] / / [id number] Quest app [employer] Aequalis Cortiloc 40mm Peg Shoulder Medium Component Glenoid [id number] - [id number] - [id number] Implanted:Qty: 1 on 12/30/2022 by Yuri Chavez MD at [facility] Left: Shoulder [employer] 08/13/2027 [id number] / [id number] / Aure[employer] Simplex P Radiopaque Full Dose Cement Bone Sterile 6191-1-010 - [id number] Implanted:Qty: 1 on 12/30/2022 by Yuri Chavez MD at [facility] Left: Shoulder [employer] 10/22/2024 6191-1-01 0 / / [id number] [employer] Head Perform Cocr Modular Humeral [id number] - [id number] - [id number] Implanted:Qty: 1 on 12/30/2022 by Yuri Chavez MD at [facility] Left: Shoulder [employer] 04/23/2027 [id number] / [id number] / [employer] Tray Stem Humeral Shoulder Reverse Aequalis Perform Dwx3ss - [id number] - [id number] Implanted:Qty: 1 on 12/30/2022 by Yuri Chavez MD at [facility] Left: Shoulder [employer] 11/26/2027 [id number] / [id number] / eVropa Technology Inc Alarm Adjuster Perform Centered Modular Humeral Head Ti [id number] - [id number] - [id number] Implanted:Qty: 1 on 12/30/2022 by Yuri Chavez MD at [facility] Left: Shoulder [employer] 10/03/2027 [id number] / [id number] / Arthrex Inc Tightrope Paul 1.1mm Button [place] Suture Mini Kit Ar-8919ds - [id number] Implanted:Qty: 1 on 01/26/2024 by Paco Silva MD at [facility] Right: Thumb Arthrex Inc [id number] 08/21/2028 AR-8919DS / / [id number] Procedures Procedure Name Priority Date/Time Associated Diagnosis Comments COLONOSCOPY 06/20/2024 9:34 AM CDT COLONOSCOPY 06/20/2024 9:32 AM CDT Rectal bleeding Diarrhea, unspecified type Colon cancer screening PSA, TOTAL AND FREE Routine 08/04/2021 1 1:54 AM CDT Elevated PSA Family history of prostate cancer from Last 3 Months or Most Recently Relevant to Health Maintenance Results * Colonoscopy (06/20/2024 9:34 AM CDT) Anatomical Region Laterality Modality Other Narrative Procedure Note Kye Mims MD - 06/20/2024 9:34 AM CDT GI ENDOSCOPY [facility] Patient Name: Tariq Scherer Procedure Date: 06/20/2024 9:34 AM Date of : 1955 Admit Type: Outpatient Age: 68 Gender: Male Attending MD: Kye Mims M.D. Room: [facility] ENDOSCOPY ROOM 8 Note Status: Finalized Procedure: Colonoscopy Indications: High risk colon cancer surveillance: Personalhistory of colonic polyps Referring MD: Kye Mims M.D. Providers: Kye Mims M.D., Christel Rios M.D. Medicines: Monitored Anesthesia Care Complications: No immediate complications. Estimated Blood Loss: Estimated blood loss: none. Procedure: Pre-Anesthesia Assessment: - Immediately prior to administration ofmedications, the patient was re-assessed for adequacy to receive sedatives. - The risks and benefits of the procedure and the sedation options and risks were discussed with the patient. All questions were answered and informed consent was obtained. The benefits, risks and alternatives of theprocedure and sedation were discussed and informed consentwas obtained. All questions were answered. Please referto the signed informed consent document in the medical record. The scope was passed under direct vision.The [id number] endoscope was introduced through the anus and advanced to the cecum, identified by appendiceal orifice and ileocecal valve. The colonoscopy was performed without difficulty. The patient tolerated the procedure well. The qualityof the bowel preparation was adequate to identifypolyps 6 mm and larger in size. The bowel preparation used was GoLYTELY. Findings: The perianal and digital rectal examinations were normal. The colon (entire examined portion) appeared normal. Examination was limited in certain parts of the colon because of the suboptimal bowel preparation. Internal hemorrhoids were found during retroflexion. The hemorrhoids were small. Impression: - Internal hemorrhoids, otherwise normalcolonoscopy. Recommendation: - Repeat colonoscopy in 2- 3 years for surveillance with two days of bowel preparation. - Anusol supp nightly for 2 weeks given recenthistory of hematochezia. Attending Participation: I was present and participated during the entire procedure, including non-siddiqui portions. Electronically Signed by Kye Mims M.D. Kye Mims M.D. 06/20/2024 10:19:39 AM . Number of Addenda: 0 Note Initiated On: 06/20/2024 9:34 AM Kye Mims MD ENDOSCOPY PROCEDURES F inal Result * PSA, total and free (08/04/2021 11:54 AM CDT) PSA 4.0 0.0 - 4.0 ng/mL [facility] - 01 Comment: G-clusterIA methodology. According to the [place] [employer], Serum PSA should decrease and remain at undetectable levels after radical prostatectomy. The AUA defines biochemical recurrence as an initial PSA value 0.2 ng/mL or greater followed by a subsequent confirmatory PSA value 0.2 ng/mL or greater. Values obtained with different assay methods or kits cannot be used interchangeably. Results cannot be interpreted as absolute evidence of the presence or absence of malignant disease. PSA, free 0.39 N/A ng/mL [facility] - 01 Comment:Alexandru ECLIA methodol ogy. PSA, free 9.8 % [facility] - 01 Comment: The table below lists the probability of prostate cancer for men with non-suspicious JUAN JOSE results and total PSA between 4 and 10 ng/mL, by patient age (Catalona et al, LIBBY 1998, 279:1542). % Free PSA 50-64 yr 65-75 yr 0.00-10.00% 56% 55% 10.01-15.00% 24% 35% 15.01-20.00% 17% 23% 20.01-25.00% 10% 20% >25.00% 5% 9% Please note: Christiana et al did not make specific recommendations regarding the use of percent free PSA for any other population of men. Blood specimen (specimen) 08/04/2021 11:54 AM CDT 08/04/2021 Narrative [facility] - 08/05/2021 8:15 AM CDT Performed at: [facility] [id number] Cafe Operator: Jet Escobar PhD, Phone: [phone] us Cody Velázquez MD LAB BLOOD ORDERABLES Final Result [facility] - from Last 3 Months or Most Recently Relevant to Health [place] [address] [facility] [place] [address] [place] [address] MEDICARE [place] [id number] [address] SUPPLEMENT Advance Directives For more information, please contact: [phone] * Full Code (Latest Code Status on File) Date Activated Date Inactivated Comments 06/20/2024 8:45 AM 06/20/2024 2:56 PM * Full Code Date Activated Date Inactivated Comments 02/09/2020 7:51 AM 02/09/2020 2:34 PM Care Teams Service Station Console Operator Relationship Specialty Start Date End Date Dominique Goode PA PCP - General Physician Citrus Peeler 09/22/18
--- OUTSIDE RECORDS SUMMARY | 2024-07-13 16:38 | XMS_ITS | Referral Summary ---
Author Organization [facility] Address [address] [place] [id number] Care Team Providers Care Water Conservationist Name Role Phone TylerDominique lee Susan LARRY Primary Care Pr ovider Encounters Date Type Department Care Team Description 06/20/2024 9:27 AM CDT Anesthesia Event [facility] [address] [address] Alma Grajeda MD Stephan, Jennifer Stephanie, CRNA 06/20/2024 10:00 AM CDT - 06/20/2024 10:45 AM CDT Surgery [address] [address] Kye Mims MD COLONOSCOPY 06/20/2024 8:37 AM CDT - 06/20/2024 10:50 AM CDT Hospital Encounter [facility] [address] [address] Kye Mims MD Discharge Disposition: Discharge to home or self care 06/14/2024 Telephone [facility] Specialty Services [address] [place] [phone] Chel Kaye RN 06/13/2024 Telephone [facility] Specialty Services [address] [place] [phone] Chel Kaye RN GI PROCEDURE 7 DAY PRE CALL 04/26/2024 Telephone [facility] G[facility]enterology [address] [facility] [address] [place] [address] [place] [address] Jeana Rivas RN GI Pre-procedure assessment 06/20/24 04/26/2024 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 Office Visit [facility]enter[facility] [address] [facility] [address] [address] [place] [address] [place] [address] Kye Mims MD Rectal bleeding (Primary Dx); Diarrhea, unspecified type; Colon cancer screening from Last 3 Months Allergies No known active allergies Medications pyridoxine [...] 1 tablet (112 mcg total) by mouth immersion metal cleaner before breakfast 4 Active amoxicillin 500 mg [...] (02/21/2020): Added automatically from request for surgery [id number] Unilateral inguinal hernia without obstruction o r gangrene 02/21/2020 Overview (02/21/2020): Added automatically from request for surgery [id number] Gas bloat syndrome 01/10/2020 Bloating 01/10/2020 Overview (01/10/2020): Added automatically from request for surgery [id number] Assessment & Plan (12/28/2020 11:20 AM CDT): In addition to the Xifaxan, the patient can try Gas-X, Beano, and cutting back on get any beverage containing bubbles (soda and beer) Diarrhea 01/10/2020 Overview (01/10/2020): Added automatically from request for surgery [id number] Abdominal pain 01/10/2020 Overview (01/10/2020): Added automatically from request for surgery [id number] Colon cancer screening 01/10/2020 Overview (01/10/2020): Added automatically from request for surgery [id number] Impingement syndrome of right wrist 12/08/2019 Overview (12/08/2019): Added automatically from request for surgery [id number] Arthritis of carpometacarpal (CMC) joint of righ t thumb 12/20/2018 Overview (12/20/2018): Added automatically from request for surgery [id number] Bilateral inguinal hernia without obstruction or gangrene 12/08/2018 Overview (12/08/2018): Added automatically from request for surgery [id number] Shoulder joint pain 07/21/2018 Hyperlipidemia 06/30/2018 Porokeratosis 04/05/2018 Arthritis 04/22/2017 Pain in shoulder 11/15/2015 Chronic pain 11/21/2012 Sciatica 11/21/2012 Piriformis syndrome 11/21/2012 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 Hypothyroidism 11/11/2012 Lumbago 06/11/2011 Pain in pelvis 06/11/2011 Pain in extremity 06/02/2011 Arthralgia of hip 05/01/2011 Immunizations Immunization Administration Dates Next Due Influenza, Quadrivalent, Spl it, Intramuscular 12/09/2019 Influenza, Unspecified 11/27/2023,12/09/2013, ZOSTER LIVE 04/18/2017,08/13/2016 ZOSTER Recombinant 09/16/2017 Social History Tobacco Use Types Packs/Day Years [...] on file Legal Sex Male 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 Gender Identity Not on file Sexual Orientation Straight 08/31/2019 3: 48 PM CDT Last Filed Vital Signs Vital Sign Reading [...] 06/20/2024 8:48 AM CDT Plan of Treatment Not on file Medical Devices Implanted Type Area Service Or Work Dispatcher Chief Device Identifier Shelf Expiration Date Model / Serial / Lot Davol Inc/C R Bard [id number] Bard Marlex 6x6in Monofilament Gold Standard Flat Sheet Groin - [id number] Implanted:Qty: 1 on 02/27/2020 by Kevin Oliva MD at [facility] Mesh N/A: Abdomen [employer] Inc/C R Bard [id number] 07/19/2024 [id number] / / 6 [employer] Inc/C R Bard [id number] Soft Mesh 6x6in Patch Knitted Flat Sheet Groin Hernia Square Mesh - [id number] Implanted:Qty: 1 on 02/27/2020 by Kevin Oliva MD at [facility] Mesh N/A: Abdomen [employer]ol Inc/C R Bard [id number] 08/19/2024 [id number] / / [id number] Acumed Inc At2-M26-S Acutrak 2 26mm Wrist Hand Ankle Foot Mini Screw Bone Nonsterile - [id number] Implanted:Qty: 1 on 02/01/2020 by Thony Upton MD at [facility] Screw Right: Hand [employer] AT2-M26-S / / Arthrex Inc Ar-8978-Cp Internalbrace Kit Hand Wrist Set Implant Ligament Augmentation - S00 - [id number] Implanted:Qty: 1 on 01/02/2019 by Thony Upton MD at [facility] Right: Wrist [employer] 10/23/2023 SHYLA-8978-C P / 00 / [id number] Davol Inc/C R Bard [id number] Soft Mesh 6x6in Patch Knitted Flat Sheet Groin Hernia Square Mesh - [id number] Implanted:Qty: 1 on 02/10/2019 by Kevin Oliva MD at [facility] Left: Abdomen [employer]ol Inc/C R Bard 10/20/2023 [id number] / / [id number] St [employer] Aequalis Cortiloc 40mm Peg Shoulder Medium Component Glenoid Fdx122 - [id number] - [id number] Implanted:Qty: 1 on 12/30/2022 by Yuri Chavez MD at [facility] Left: Shoulder [employer] 08/13/2027 [id number] / [id number] / [employer] [employer] Simplex P Radiopaque Full Dose Cement Bone Sterile 6191-1-010 - [id number] Implanted:Qty: 1 on 12/30/2022 by Yuri Chavez MD at [facility] Left: Shoulder [employer] 10/22/2024 6191-1-01 0 / / [id number] [email or web address] Head Perform Cocr Modular Humeral Rvb3005 - [id number] - [id number] Implanted:Qty: 1 on 12/30/2022 by Yuri Chavez MD at [facility] Left: Shoulder [email or web address] 04/23/2027 [id number] / [id number] / [employer] Tray Stem Humeral Shoulder Reverse Aequalis Perform Dwx3ss - [id number] - [id number] Implanted:Qty: 1 on 12/30/2022 by Yuri Chavez MD at [facility] Left: Shoulder [email or web address] 11/26/2027 DWX3SS / [id number] / St Medical [employer] Inc Printed Circuit Board Assembly Repairer Perform Centered Modular Humeral Head Ti Dyq381 - [id number] - [id number] Implanted:Qty: 1 on 12/30/2022 by Yuri Chavez MD at [facility] Left: Shoulder [employer] 10/03/2027 [id number] / [id number] / Arthrex Inc Tightrope Paul 1.1mm Button Nunda Suture Mini Kit Ar-8919ds - [id number] Implanted:Qty: 1 on 01/26/2024 by Paco Silva MD at [facility] Right: Thumb [employer] Inc [id number] 08/21/2028 [facility]8919DS / / [id number] Procedures Procedure Name Priority Date/Time Associated Diagnosis [...] Attending MD: Kye Mims M.D. Room: [facility] ENDOSCOPY ROOM 8 Note Status: Finalized [...] The scope was passed under direct vision.The [id number] endoscope was introduced through the anus and [...] 0 Note Initiated On: 06/20/2024 9:34 AM us Kye Mims MD ENDOSCOPY PROCEDURES F inal Result * PSA, total and free (08/04/2021 11:54 AM CDT) PSA 4.0 0.0 - 4.0 ng/mL [facility] - Comment: Alexandru ECLIA methodology. According to the [employer] [employer], Serum PSA should decrease and [...] PSA, free 0.39 N/A ng/mL [facility] - Comment:Alexandru ECLIA methodol ogy. PSA, free 9.8 % [facility] - Comment: The table below lists the probability of prostate cancer for men with non-suspicious JUAN JOSE results and total PSA between 4 and 10 ng/mL, by patient age (Christiana et al, LIBBY 1998, 279:1542). % Free [...] - 08/05/2021 8:15 AM CDT Performed at: - [facility] [id number] Sheet Metal Helper: Jet Escobar PhD, Phone: [phone] us Cody Velázquez MD LAB BLOOD ORDERABLES Final Result [facility] - from Last 3 Months or Most Recently Relevant to Health Maintenance Insurance [place] [id number] MEDIC[place] [address] [address] [place] SUPP[place] [address] [place] [address] [place] [address] [address] [facility] SUPPLEMENT Advance Directives For more information, please contact: [phone] * Full Code (Latest Code Status on File) Date Activated Date Inactivated Comments 06/20/2024 8:45 AM 06/20/2024 2:56 PM * Full Code Date Activated Date Inactivated Comments 02/09/2020 7:51 AM 02/09/2020 2:34 PM Care Teams Water Conservationist Relationship Specialty Start Date End Date Dominique Goode PA PCP - General Physician Retread Mold Operator 09/22/18
--- OUTSIDE RECORDS SUMMARY | 2024-07-13 16:38 | XMS_ITS | Continuity of Care Document ---
Author Organization [facility] Address [address] [place] [address] [place] [address] Phone Care Team Providers Care Scrap Stripper Hand Name Role Phone Collin Crabtree DO Unavailable Unavailable Advance Directives Directive Yes / No Effective Date File Name No Information Encounters Encounter Description Practice Location Reason(s) For Visit Diagnoses Date Provider Providers Copied on Encounter [facility], [address], [place], [place], [id number], [place] tel:[phone] [facility] No Information Leyda Marie. [address] [facility], [place], [address], [place]. tel: [phone] Family History Family Member Type Diagnosis Age At Onset No Information Payers Payer name Insurance type Covered libertarian ID Authoriza tion(s) No Information Social History Type Description Quantity Date Captured Comments Sex Male Smoking Status No Information Chief Complaint And Reason For Visit No Information Reason For Referral Reason For Referral No Information History Of Present Illness Encounter Date Complaint History Of Prese nt Illness No Information Functional Status Date Functional Assessmen t No Information Instructions Date Instruction Additional Infor mation No Information Assessments Type Assessment Date No Information Patient Care Teams Name Effective Dates (start - stop) Status Members No Information
--- OUTSIDE RECORDS SUMMARY | 2024-07-13 16:38 | XMS_ITS | Encounter Summary ---
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 Gender Identity Not on file Sexual Orientation Straight 08/31/2019 3: 48 PM CDT documented as of this encounter Plan of Treatment Not on file documented as of this encounter Procedures Procedure Name Priority Date/Time Associated Diagnosis Comments SCAN - RADIOLOGY/IMAGING 03/13/2020 documented in this encounter Results * SCAN - RADIOLOGY/IMAGING (03/13/2020) Anatomical Region Laterality Modality Other us Provider Scanning Final Result documented in this encounter Visit Diagnoses Not on filedocumented in this encounter Care Teams Stock Preparation Supervisor Relationship Specialty Start Date End Date Dominique Goode PA PCP - General Physician Brush Holder Assembler 09/22/18 documented as of this encounter
--- OUTSIDE RECORDS SUMMARY | 2024-07-13 16:38 | XMS_ITS | Data Portability ---
Author Organization [place] - [facility] [employer] [place], Main Office Address [address] [place] [address] Assessment No assessment recorded. Plan of Treatment Reminders Order Date Submit Date Provider Last Modified By Organization Details Last Modified Time Details Appointments None recorded . Lab TSH + free T4, serum 023 11/27/19 [place] [facility], [address] Leisa Alc[address]ar, [address], [place], [address], 3 11:09:12 T3, free, serum or plasma 023 11/27/19 [place] [facility], 2022 Leisa Alcantar, [address], [place], [address], 3 11:09:12 Referral None recorded . Procedures None recorded . Surgeries None recorded . Imaging None recorded . Medication Orders None recorded . Patient TargetsNo targets recorded. Patient InstructionsNo instructions recorded. Reason for Referral None Reported. Results Created Date Observation Date Name Description Value Unit Range Abnormal Flag Note LastModifiedBy Organization Detail LastModifiedTime 08/05/1908/05/2021 TRIIO DOTHY QUENTIN E (T3), FREE triiodothyro nine (T3), free 2.7 pg/mL 2.0-4. 4 Not Available [facility] ([facility]) [address] [place], [address], 08/05/2021 08:19:01 08/05/19 22 08/05/2021 T4 AND TSH TSH 0.835 uIU/m L 0.450- 4.500 Not Available [facility] ([facility]) [address] [facility], [place], [address], 08/05/2021 08:19:00 08/05/19 22 08/05/2021 T4 AND TSH thyroxine (T4) 7.2 ug/dL 4.5-12 .0 Not Available [facility] ([facility]) [address], [place], [address], 08/05/2021 08:19:00 10/13/19 23 11/07/2019 CT, chest , w/o contr ast No observ ation record ed. [facility] Not Available 2022 11:41:51 10/21/19 23 10/20/2022 CT, chest , w/o contr ast No observ ation record ed. [facility] ([facility]) [address] [place], [address], 01/22/2023 11:23:50 02/02/20 23 12/10/2022 CT, shoul aleksandra, w/o contr ast No observ ation record ed. [address] [facility] [place], [address], 02/01/2023 14:57:41 05/10/19 24 05/10/2023 XR, ankle + foot No observ ation record ed. [address], [place], [address], 10/16/2023 17:14:18 05/10/19 24 05/10/2023 XR, shoul aleksandra, 2 or more view No observ ation record ed. [address], [place], [address], 10/16/2023 17:14:46 05/10/19 24 05/10/2023 XR, chest , 2 view No observ ation record ed. [address], [place], [address], 10/16/2023 17:15:12 05/10/19 24 05/10/2023 CT, brain , w/o contr ast No observ ation record ed. [place] [id number] [facility] [address], [place], [address], 09/15/2023 13:41:25 05/10/19 24 05/10/2023 CT, cervi raysa spine , w/o contr ast No observ ation record ed. [address] [facility] [address], [place], [address], 09/15/2023 13:41:41 Result Notes None recorded. Problems Name Problem SNOMED Code Status Onset Date Resolution Date Notes Provider Name and Address Organization Details Recorded Time Anxiety 13937127 Active 2022 LARON Jennings [address], [address], [place], [address] , [employer] 3 21:37:16 Nodule of lung 611811271 Active 2022 LARON Jennings [address], [address], [place], [address] , [employer] 3 12:02:14 Renewal of prescripti on Active 2021 Not Available [facility] 3 04:51:14 Tailor's bunion of left foot 9430204216804 100 Active 2019 Not Available [facility] 3 04:51:14 Benign essential hypertensi on 8349000 Active 2021 Not Available [facility] 3 04:51:14 Chronic thoracic back pain 7491839305297 03 Active 2021 Not Available [facility] 3 04:51:14 Disorder of thyroid gland 71041993 Active Not Available [facility] 3 04:51:14 Irritable bowel syndrome with diarrhea 157632287 Active 2021 Not Available [facility] 3 04:51:14 Osteoarthr itis of joint of hand 85086084 Active Not Available [facility] 3 04:51:14 Foot callus 994011762 Active 2019 Not Available [facility] 3 04:51:15 Gastroesop hageal reflux disease 195902614 Active 2021 Not Available [facility] 3 04:51:15 Shoulder joint pain 715555605 Active Not Available [facility] 3 04:51:15 Arthritis 4816962 Active 2017 Not Available [facility] 3 04:51:15 Prostate specific antigen above reference range 766282600 Active 2021 Not Available [facility] 3 04:51:15 Porokerato sis 450526741 Active 2018 Not Available [facility] 3 04:51:15 Hypothyroi dism 60023465 Active 2018 Not Available [facility] 3 04:51:15 Arthropath y of joint of hand 771333322 Active Not Available [facility] 3 04:51:15 Hyperlipid emia 92274822 Active 2018 Not Available [facility] 3 04:51:15 Notes:high cholesterol, thyr oid disease Problem Notes None recorded. Procedures Surgical History Date Name Laterality Status Provider Name and Address Organization Details Recorded Time 12/24/19 23 procedure on shoulder completed MARGARITA Matthew [place] - [facility] [place] [employer] [facility] 01/22/2023 11:14:06 02/11/20 19 Hernia repair w/mesh completed Not Available [facility] 04/22/2022 04:42:59 12/24/19 19 Orthopedic Surgery completed Not Available [facility] 04/22/2022 04:42:59 07/24/19 19 laparoscopic total fundoplication using abdominal approach completed Not Available [facility] 04/22/2022 04:42:59 Tonsillectomy completed Not Available [facility] 04/22/2022 04:42:59 Cholecystectomy completed Not Available [facility] 04/22/2022 04:42:59 Shoulder joint surgery completed Not Available [facility] 04/22/2022 04:42:59 Imaging Results Imaging Date Name Status LastModified by Organiz [facility] Details LastModified Time 11/07/2019 CT, chest, w/o contrast completed [facility] Information not available 10/12/2022 11:41:51 10/20/2022 CT, chest, w/o contrast completed [address] (Imaging) [address] [place], [address], 01/22/2023 11:23:50 12/10/2022 CT, shoulder, w/o contrast completed [address] [facility] [address] [place] [address], [address], 02/01/2023 14:57:41 05/10/2023 XR, ankle + foot completed [address], [address], 10/16/2023 17:14:18 05/10/2023 XR, shoulder, 2 or more view completed [address], [address], 10/16/2023 17:14:46 05/10/2023 XR, chest, 2 view completed [address] [place] [address], [address], 10/16/2023 17:15:12 05/10/2023 CT, brain, w/o contrast completed [address], [address], 09/15/2023 13:41:25 05/10/2023 CT, cervical spine, w/o contrast completed [address], [address], 09/15/2023 13:41:41 Procedure Notes None recorded. Medical Equipment None Reported. Allergies No known drug allergies Medications Name Sig Start Date Stop Date Status Note LastModified by Organization Details LastModified Time cyclobenzap rine 10 mg tablet TAKE 1 TABLET BY MOUTH THREE TIMES A DAY NEEDED FOR MUSCLE SPASMS 01/22 completed Not Available Not Available Not Available amoxicillin 500 mg capsule TAKE 4 CAPSULES BY MOUTH 1 HOUR PRIOR TO DENTAL PROCEDURE 01/22 completed Not Available Not Available Not Available levothyroxi ne 175 mcg tablet 02/20 completed Not Available Not Available Not Available levothyroxi ne 137 mcg tablet Take 1 tablet every day by oral route for 90 days. active Not Available Not Available No t Available doxycycline hyclate 100 mg capsule 07/18 completed Not Available Not Available Not Available ammonium lactate 12 % lotion APPLY 2 APPLICATI ONS EVERY DAY BY TOPICAL ROUTE DIRECTED TO PLANTAR FOOT CALLUS. 01/22 completed Not Available Not Available Not Available loperamide 2 mg capsule active Not Available Not Available Not Available trazodone 50 mg tablet 02/20 completed Not Available Not Available Not Available azithromyci n 250 mg tablet 06/30 completed Not Available Not Available Not Available ampicillin 500 mg capsule TAKE 1 CAPSULE BY MOUTH FOUR TIMES A DAY UNTIL GONE 07/22 completed Not Available Not Available Not Available hydrocodone 5 mg-acetamin ophen 325 mg tablet active Not Available Not Available No t Available doxycycline hyclate 50 mg capsule 07/18 completed Not Available Not Available Not Available diphenoxyla te-atropine 2.5 mg-0.025 mg tablet 01/22 completed Not Available Not Available Not Available amlodipine 2.5 mg tablet TAKE 1 Tab PO AM and 2 tabs PO PM 2022 active Not Available Not Available Not Avai lable amlodipine 5 mg tablet Take 1 tablet every day by oral route. active Not Available Not Available No t Available ciprofloxac in 500 mg tablet 02/20 completed Not Available Not Available Not Available sulfamethox azole 800 mg-trimetho prim 160 mg tablet TAKE 1 TABLET BY MOUTH TWICE A DAY FOR 10 DAYS 07/22 completed Not Available Not Available Not Available hydrocodone 10 mg-acetamin ophen 325 mg tablet 01/05 completed Not Available Not Available Not Available omeprazole 40 mg capsule,del ayed release 07/05 completed Not Available Not Available Not Available triamcinolo ne acetonide 0.1 % topical cream 01/05 completed Not Available Not Available Not Available amoxicillin 500 mg tablet 01/22 completed Not Available Not Available Not Available hydrocortis one acetate 25 mg rectal suppository 02/20 completed Not Available Not Available Not Available oxycodone-a cetaminophe n 5 mg-325 mg tablet 02/20 completed Not Available Not Available Not Available alprazolam 0.5 mg tablet TAKE 1 TABLET THREE TIMES DAILY NEEDED 2023 active Not Available Not Available Not Avai lable doxazosin 8 mg tablet Take 1 tablet every day by oral route. 01/22 completed Not Available Not Available Not Available dicyclomine 20 mg tablet Take 1 tablet 4 times a day by oral route as needed. 07/05 completed Not Available Not Available Not Available prednisone 1 mg tablet 02/20 completed Not Available Not Available Not Available hydrocortis one 1 % topical cream 01/05 completed Not Available Not Available Not Available hydrocodone 7.5 mg-acetamin ophen 325 mg tablet 02/20 completed Not Available Not Available Not Available cephalexin 500 mg capsule TAKE 1 CAPSULE BY MOUTH TWICE A DAY active Not Available Not Available No t Available pantoprazol e 40 mg tablet,steven yed release 01/05 completed Not Available Not Available Not Available levothyroxi ne 125 mcg tablet TAKE 1 TABLET EVERY DAY 2023 active Not Available Not Available Not Avai lable levothyroxi ne 150 mcg tablet 02/20 completed Not Available Not Available Not Available docusate sodium 100 mg capsule TAKE 1 CAPSULE BY MOUTH TWICE A DAY 01/21 completed Not Available Not Available Not Available omeprazole 20 mg capsule,del ayed release Take 1 capsule twice a day by oral route with meals. active Not Available Not Available No t Available Drysol Dab-O-Matic 20 % topical solution APPLY A THIN FILM TO THE SKIN DIRECTED active Not Available Not Available No t Available doxazosin 4 mg tablet TAKE 1 TABLET EVERY DAY active Not Available Not Available No t Available methylpredn isolone 4 mg tablets in a dose pack 01/22 completed Not Available Not Available Not Available celecoxib 100 mg capsule TAKE 1 CAPSULE TWICE DAILY W/FOOD active Not Available Not Available No t Available cefdinir 300 mg capsule 02/20 completed Not Available Not Available Not Available sertraline 50 mg tablet 02/20 completed Not Available Not Available Not Available colestipol 1 gram tablet TAKE 2 TABLETS BY MOUTH THREE TIMES A DAY BEFORE MEALS 07/17 completed Not Available Not Available Not Available amoxicillin 875 mg-potassiu m clavulanate 125 mg tablet TAKE 1 TABLET BY MOUTH TWICE A DAY active Not Available Not Available No t Available oxycodone 5 mg tablet TAKE ONE TABLET BY MOUTH EVERY 4 HOURS NEEDED FOR PAIN FOR UP TO 15 DOSES 07/17 completed Not Available Not Available Not Available cholestyram ine (with sugar) 4 gram powder for susp in a packet 02/20 completed Not Available Not Available Not Available rosuvastati n 5 mg tablet TAKE 1 TABLET EVERY DAY active Not Available Not Available No t Available rosuvastati n 10 mg tablet TAKE ONE TABLET BY MOUTH ONCE DAILY AT BEDTIME active Not Available Not Available No t Available fluocinonid e 0.1 % topical cream 02/20 completed Not Available Not Available Not Available Zostavax (PF) 19,400 unit/0.65 mL subcutaneou s suspension 02/20 completed Not Available Not Available Not Available Voltaren 1 % topical gel 02/20 completed Not Available Not Available Not Available Xifaxan 550 mg tablet 07/22 completed Not Available Not Available Not Available Shingrix (PF) 50 mcg/0.5 mL intramuscul ar suspension, kit 06/30 completed Not Available Not Available Not Available ID NOW COVID-19 Test Kit TEST DIRECTED TODAY 07/18 completed Not Available Not Available Not Available Vitals Date Recorded Body mass index (BMI) Body height Oxygen saturation Oxygen saturation in Arterial blood by Pulse oximetry Heart rate Respiratory rate Body temperature Body weight Systolic blood pressure Diastolic blood pressure Provider Name and Address Organization Details Last Updated DateTime 2 22.3 kg/m2 175.26 cm 99 % 99 % 81 /min 16 /min 98.4 [degF] 10086.4 5 g 112 mm[Hg] 62 mm[Hg] Not Available [facility] 3 04:43:24 Date Recorded Body mass index (BMI) Body height Oxygen saturation Oxygen saturation in Arterial blood by Pulse oximetry Heart rate Body temperature Body weight Systolic blood pressure Diastolic blood pressure Provider Name and Address Organization Details Last Updated DateTime 2 22 kg/m2 175.26 cm 98 % 98 % 99 /min 97.6 [degF] 56940.2 6 g 122 mm[Hg] 64 mm[Hg] Not Available [facility] 3 04:43:24 Date Recorded Body height Heart rate Systolic blood pressure Diastolic blood pressure Provider Name and Address Organization Details Last Updated DateTime 03/06/2021 175.26 cm 69 /min 118 mm[Hg] 79 mm[Hg] Not Available [facility] 04/22/2022 04:43:24 Date Recorded Body height Body mass index (BMI) Body weight Heart rate Oxygen saturation Oxygen saturation in Arterial blood by Pulse oximetry Body temperature Systolic blood pressure Diastolic blood pressure Provider Name and Address Organization Details Last Updated DateTime 3 175.26 cm 20.7 kg/m2 31233.9 3 g 64 /min 97 % 97 % 97.6 [degF] 114 mm[Hg] 62 mm[Hg] Sravani Quinonez RN [facility] [employer] 3 11:15:58 Date Recorded Body height Body mass index (BMI) Body weight Respiratory rate Heart rate Oxygen saturation Oxygen saturation in Arterial blood by Pulse oximetry Systolic blood pressure Diastolic blood pressure Provider Name and Address Organization Details Last Updated DateTime 3 175.26 cm 20.1 kg/m2 19478.5 6 g 16 /min 68 /min 97 % 97 % 118 mm[Hg] 72 mm[Hg] MARGARITA Matthew [facility] 3 11:16:18 Social History Question Answer Notes LastModified by Organizat ion Details LastModified Time Tobacco Smoking Status Former Smoker MARGARITA Matthew null [employer] 01/22/2023 11:06:58 Do You Have An Advance Directive? No [id number] Information not available 04/22/2022 Do You Wear A Helmet When Biking? No [email or web address] Information not available 01/22/2023 Are You Blind Or Do You Have Difficulty Seeing? No [email or web address] Information n ot available 01/22/2023 What Is Your Level Of Caffeine Consumption? Moderate [id number] Information not available 04/22/2022 How Much Tobacco Do You Chew? None [id number] Information not available 04/22/2022 In The 14 Days Before Symptom Onset, Have You Had Close Contact With A Laboratory-confirm ed COVID-19 While That Case Was Ill? No [email or web address] Information n ot available 01/22/2023 In The 14 Days Before Symptom Onset, Have You Had Close Contact With A Person Who Is Under Investigation For COVID-19 While That Person Was Ill? No [email or web address] Information not available 01/22/2023 What Type Of Diet Are You Following? REGULAR [id number] Information not available 04/22/2022 Which Illicit Or Recreational Drugs Have You Used? None [email or web address] Information not available 01/22/2023 Have There Been Any Changes To Your Family Or Social Situation? No [email or web address] Information no t available 01/22/2023 When Did You Quit Smoking? 16+yearssince lastcigarette [email or web address] Information not available 01/22/2023 Are There Any Guns Present In Your Home? No [email or web address] Information not available 01/22/2023 Do You Use Insect Repellent Routinely? No [email or web address] Information not available 01/22/2023 Do You Have A Medical Power Of Apartment Maintenance Manager? No [email or web address] Information not available 01/22/2023 Have You Ever Been Counseled For Unhealthy Alcohol Use? No [email or web address] Information not available 01/22/2023 What Is Your Relationship Status? [id number] Information not available 04/22/2022 Do You Use Your Seat Belt Or Car Seat Routinely? Yes Information not available 01/22/2023 Do You Have Smoke And Carbon Monoxide Detectors In Your Home? Yes [email or web address] Information not available 01/22/2023 Are You Passively Exposed To Smoke? No [email or web address] Information no t available 01/22/2023 Are There Any Smokers In Your House? No [email or web address] Information not available 01/22/2023 How Much Tobacco Do You Smoke? No [id number] Information not available 04/22/2022 Do You Use Sunscreen Routinely? Yes Information not available 01/22/2023 Has Tobacco Cessation Counseling Been Provided? No [email or web address] Information not available 01/22/2023 Have You Recently Traveled Abroad? No [email or web address] Information not available 01/22/2023 Do You Have Difficulty Walking Or Climbing Stairs? No [email or web address] Information not available 01/22/2023 Do You Have Any Dietary Restrictions? No [email or web address] Information not available 01/22/2023 Sex: Unknown Functional Status Question Answer Note LastModified by Organizat ion Details LastModified Time Do you use any illicit or recreational drugs? No [email or web address] Information not available 01/22/2023 Do you or have you ever used any other forms of tobacco or nicotine? No [email or web address] Information not available 01/22/2023 What is your level of alcohol consumption? Heavy [id number] Information not available 04/22/2022 Do you or have you ever used smokeless tobacco? Never used smokeless tobacco [id number] Information not available 04/22/2022 Are you currently employed? No [email or web address] Information not available 01/22/2023 Do you have transportation difficulties? No [email or web address] Information not available 01/22/2023 Do you have difficulty doing errands alone? No [email or web address] Information not available 01/22/2023 Are you able to care for yourself? Yes [email or web address] Information n ot available 01/22/2023 What is your occupation? retired Information not available 01/22/2023 Do you have difficulty dressing or bathing? No [email or web address] Information not available 01/22/2023 Do you or have you ever used e-cigarettes or vape? Never used electronic cigarettes Information not available 01/22/2023 What is your exercise level? Moderate [id number] Information not available 04/22/2022 Mental Status Question Answer Note LastModified by Organization D etails LastModified Time Do you feel stressed (tense, restless, nervous, or anxious, or unable to sleep at night)? [id number] [email or web address] Information not available 01/22/2023 Family History Relationship Description Onset Age of this Age Resolved Age Notes LastModified by Organization Details LastModified Time Mother Alzheimer's disease Not available 01/22 11:06:57 Mother Hypertensive disorder [id number] Not available 04/22/2022 04:43:01 Maternal Grandfather Alzheimer's disease Not available 01/22 11:06:57 Maternal Grandmother Goiter due to thyroiditis [email or web address] Not available 02/2022 11:06:57 Father Alcoholism [email or web address] Not avail able 01/22/2023 11:06:57 Medical History Condition Response HYPERTENSION Y Immunizations Vaccine Type Date Status Note Provider Nam e and Address Organization Details Recorded Time Influenza, split virus, quadrivalent, preservative 0 completed Not Available [facility] 04/22/2022 05:01:13 Past Encounters Encounter ID Performer Location Encounter Start Date Encounter Closed Date Diagnosis/Indication Diagnosis SNOMED-CT Code Diagnosis ICD10 Code Diagnosis Note [id number] LARON Jennings [facility] [place] [address] [place] [address] 07/17/2020 00:00:00 07/17/2020 14:11:13 [id number] LARON Jennings [facility] [place] [address] [facility] [address], [address] [place] [address], [place] [address] 01/21/2021 00:00:00 01/21/2021 12:13:23 [id number] Bj Gonzalez DPM [facility] [place] [address] [facility] [address] [place] [address] 03/06/2021 00:00:00 03/06/2021 11:10:41 [id number] Tariq Virgen MD [facility] [place] [address] [facility] [address], [address] [place] [address], [place] [address] 07/22/2021 00:00:00 07/22/2021 11:03:58 [id number] LARON Jennings [facility] [place] [address] [facility] [address], [address] [place] [address], [place] [address] 01/22/2022 00:00:00 02/20/2022 17:16:58 [id number] LARON Jennings [facility] [place] [address] [facility] [address], [address] [place] [address], [place] [address] 07/23/2022 11:09:18 07/23/2022 11:39:26 Hypothyroidism 31792434 E03.9 labs are stable. on supplement . due for repeat labs in nov. Benign ess ential hypertension 4901846 I10 stable on amlodipine 2.5mg bid Hyperlipidemia 75432155 E78.5 stable on low dose crestor 5mg daily. Gastroesop hageal reflux disease 306877617 K21.9 stable on PPI therapy. Anxiety 61159087 F41.9 stable on alprazolam 0.5mg tid PRN Long-term drug therapy 995641374 Z79.899 labs are UTD [id number] LARON Jennings [facility] [place] [address] [place] [address] 01/22/2023 11:06:20 01/22/2023 11:50:07 Hypothyroidism 41161868 E03.9 labs are stable. on supplement . Benign ess ential hypertension 4202570 I10 stable on amlodipine 2.5mg bid Hyperlipidemia 38354456 E78.5 stable on low dose crestor 5mg daily. Gastroesop hageal reflux disease 516534487 K21.9 stable on PPI therapy. Anxiety 34877747 F41.9 stable on alprazolam 0.5mg tid PRN Long-term drug therapy 982674546 Z79.899 labs are UTD Health Concerns Section Related Observation LastModified by Organization Detai ls LastModified Time None Recorded Concern Status LastModified by Organization Details LastModified Time None Recorded Advance Directives Directive N: Payers Encounter Date Sequence Insurance Name Policy Number Policy Tovar Covered Member ID Tovar Member ID Guarantor Name 07/23/2022 [facility] Tariq Scherer [id number] Tariq Scherer 07/23/2022 2 [employer] - LOCAL 520 Tariq Scherer [id number] Tariq Scherer 01/22/2023 [facility] Tariq Scherer [id number] Tariq Scherer 01/22/2023 2 [employer] 520 Tariq Scherer [id number] Tariq Scherer Notes Date Note Type Note Provider Name and Address Organization Details Recorded Time 07/23/19 22 text/ht ml HyperlipidemiaReported bypatient.Control:usually well controlled; improving; at goal Compliance:compliant; compliant with diet;does not exercise Complications:no coronary artery disease; no peripheral artery disease; no cardiovascular diseaseHypertensionReported bypatient.Severity:mild Duration:has noted for years Onset/Timing:better Alleviating Factors:medication Self Care:not under emotional stress Associated Symptoms:no shortness of breath; no fatigue; no palpitations; no decline in exercise capacity; no snoringHypothyroidismReported bypatient.Severity:moderate Onset/Timing:better Context/Risk:normal thyroid levels; no history of head or neck radiation during childhood; no history of thyroid disease; no history of hypothyroidism; no history of hyperthyroidism; no excess iron exposure Exercisegets exercise Associated Symptoms:no cold intolerance; no weight loss; no weight gain; no double vision; no dry eyes; no difficulty swallowing; no neck masses; no deepening of the voice; no fast heart rate; no increased blood pressure; no palpitations; no chest pain; no chest tightess or pressure; no constipation; no diarrhea; no vomiting; no decreased appetite; no loose stools; no irregular menstrual periods; no excessive sweating; no joint pain; no numbness; no tingling of the hands or feet; no dry skin; no tremor; no nervousness; no anxiety; no depression; no fatigue; no sleep difficulties; no skin changes; no hair changes;heat intolerance(prone to heat strokes);hoarseness Not Available [facility] 07/22/2021 11:03:58 01/23/20 22 text/ht ml HyperlipidemiaReported bypatient.Control:usually well controlled; improving; at goal Compliance:compliant; compliant with diet;does not exercise Complications:no coronary artery disease; no peripheral artery disease; no cardiovascular diseaseHypertensionReported bypatient.Severity:mild Duration:has noted for years Onset/Timing:better Alleviating Factors:medication Self Care:not under emotional stress Associated Symptoms:no shortness of breath; no fatigue; no palpitations; no decline in exercise capacity; no snoringHypothyroidismReported bypatient.Severity:moderate Onset/Timing:better Context/Risk:normal thyroid levels; no history of head or neck radiation during childhood; no history of thyroid disease; no history of hypothyroidism; no history of hyperthyroidism; no excess iron exposure Exercisegets exercise Associated Symptoms:no cold intolerance; no weight loss; no weight gain; no double vision; no dry eyes; no difficulty swallowing; no neck masses; no deepening of the voice; no fast heart rate; no increased blood pressure; no palpitations; no chest pain; no chest tightess or pressure; no constipation; no diarrhea; no vomiting; no decreased appetite; no loose stools; no irregular menstrual periods; no excessive sweating; no joint pain; no numbness; no tingling of the hands or feet; no dry skin; no tremor; no nervousness; no anxiety; no depression; no fatigue; no sleep difficulties; no skin changes; no hair changes;heat intolerance(prone to heat strokes);hoarseness Not Available [place] [facility] 02/20/2022 17:16:58 07/24/19 23 text/ht ml HyperlipidemiaReported bypatient.Duration:chronic Control:usually well controlled; improving; at goal Compliance:compliant; compliant with diet; exercises Complications:no coronary artery disease; no peripheral artery disease; no cardiovascular diseaseHypertensionReported bypatient.Onset/Timing:better Alleviating Factors:medication Associated Symptoms:no shortness of breath; no fatigue; no palpitations; no decline in exercise capacity; no snoringHypothyroidismReported bypatient.Onset/Timing:better Context/Risk:normal thyroid levels; no history of head or neck radiation during childhood; no history of thyroid disease; no history of hypothyroidism; no history of hyperthyroidism; no excess iron exposure;history of hypothyroidism Exercisegets exercise Associated Symptoms:no cold intolerance; no heat intolerance; no weight loss; no weight gain; no double vision; no dry eyes; no hoarseness; no difficulty swallowing; no neck masses; no deepening of the voice; no fast heart rate; no increased blood pressure; no palpitations; no chest pain; no chest tightess or pressure; no constipation; no diarrhea; no vomiting; no decreased appetite; no loose stools; no irregular menstrual periods; no excessive sweating; no joint pain; no numbness; no tingling of the hands or feet; no dry skin; no tremor; no nervousness; no anxiety; no depression; no fatigue; no sleep difficulties; no skin changes; no hair changesReflux/GERDReported bypatient.Severity:improving Context:non-smoker; no drug/alcohol abuse; no drug alcohol withdrawal; not related to food/drink Alleviating Factors:medication Associated Symptoms:no frequent coughing; no feeling of fullness/mass in throat; no hoarseness; no food getting stuck; no belching/burping; no nausea; no vomiting; not vomiting blood; no regurgitation; no shortness of breath; no chest pain; no heartburn; no difficulty swallowing; no pain when swallowing; no bad taste; no decreased appetite; no weight loss; no black/tarry stools; no fatigue; no throat pain LARON Jennings [address] [facility], [facility] [address], [address], [place] [facility] 08/15/2022 21:39:03 01/23/20 23 text/ht ml HyperlipidemiaReported bypatient.Duration:chronic Control:usually well controlled Compliance:compliant; exercises;noncompliant with diet Complications:no coronary artery disease; no peripheral artery disease; no cardiovascular disease Risk Factors:hypertensionHypertension Reported bypatient.Duration:has noted for years Onset/Timing:better Alleviating Factors:medication Associated Symptoms:no shortness of breath; no fatigue; no palpitations; no decline in exercise capacity; no snoringHypothyroidismReported bypatient.Quality:not changing Duration:constant Onset/Timing:still present Context/Risk:normal thyroid levels; no history of head or neck radiation during childhood; no history of thyroid disease; no history of hyperthyroidism; no excess iron exposure;history of hypothyroidism Modifying Factors:medication Exercisegets exercise Associated Symptoms:no cold intolerance; no heat intolerance; no weight loss; no weight gain; no double vision; no dry eyes; no hoarseness; no difficulty swallowing; no neck masses; no deepening of the voice; no fast heart rate; no increased blood pressure; no palpitations; no chest pain; no chest tightess or pressure; no constipation; no diarrhea; no vomiting; no decreased appetite; no loose stools; no irregular menstrual periods; no excessive sweating; no joint pain; no numbness; no tingling of the hands or feet; no dry skin; no tremor; no nervousness; no anxiety; no depression; no fatigue; no sleep difficulties; no skin changes; no hair changesReflux/GERDReported bypatient.Severity:same Duration:present 5 or more years Onset/Timing:gone now Context:non-smoker; no drug/alcohol abuse; no drug alcohol withdrawal; not related to food/drink Alleviating Factors:medication Associated Symptoms:no frequent coughing; no feeling of fullness/mass in throat; no hoarseness; no food getting stuck; no belching/burping; no vomiting; not vomiting blood; no regurgitation; no shortness of breath; no chest pain; no heartburn; no difficulty swallowing; no pain when swallowing; no bad taste; no decreased appetite; no weight loss; no black/tarry stools; no fatigue; no throat pain LARON Jennings [address] [place] [address], [address], [address], [place] [facility] 02/16/2023 21:25:54
== END 2024-07-13 16:22 | disposition home or self-care (01) ==
PROVIDERS: PCP Physician Assistant; Visit Provider Physician Assistant
DX: I65.23 Occlusion and stenosis of bilateral carotid arteries (principal)
CPT/HCPCS: 93880

== ENCOUNTER 2024-12-22 11:04 | Outpatient (CLI) | payer MEDICARE, OTHER, SELFPAY ==
--- NOTE | ~2024-12-22 | MR_ITS ---
EXAMINATION: MR TMJS DATE: 12/22/2024 11:49 INDICATION: Temporomandibular joint tenderness. Clipping and popping. TECHNIQUE: Magnetic resonance imaging (MRI) of the temporomandibular joints was performed without intravenous contrast in closed mouth and open-mouth positions. COMPARISON: Head CT 05/10/2023 FINDINGS: The right temporomandibular joint demonstrates normal morphology of the mandibular condyle. The disc is in normal position with mouth closed. There is normal anterior translation of the mandibular condyle with mouth open. The disc is in normal position with mouth open. The left temporomandibular joint demonstrates normal morphology of the mandibular condyle. There is abnormal anterior displacement of the disc with mouth closed. There is normal anterior translation of the mandibular condyle with mouth open. There is normal recapture of the disc with mouth open. IMPRESSION: 1. Normal right temporomandibular joint. 2. Abnormal anterior displacement of the left temporomandibular joint disc with mouth closed with normal recapture of the disc with mouth open. Reviewed, dictated and finalized at location E.
== END 2024-12-22 11:05 | disposition home or self-care (01) ==
LOC: MICIMG 11:06
PROVIDERS: PCP Physician Assistant; Visit Provider Physician Assistant
DX: M26.621 Arthralgia of right temporomandibular joint (principal)
CPT/HCPCS: 70336

== ENCOUNTER 2024-12-22 11:13 | Outpatient (CLI) | payer MEDICARE, OTHER, SELFPAY ==
--- NOTE | ~2024-12-22 | CT_ITS ---
EXAMINATION: CT cervical spine wo con COMPARISON: None HISTORY: Cervical spinal stenosis TECHNIQUE: Axial images were obtained through the spine without IV contrast. Coronal, sagittal reconstruction images were obtained from the axial views. CT scan performed using dose optimization techniques including the following automated exposure control; adjustment of mA and/or kV; use of iterative reconstruction technique. Automatic exposure control was used to reduce radiation dose. Permanent radiation dose record is archived to PACS. FINDINGS: Grade 1 retrolisthesis of C3 on C4, grade 1 anterolisthesis of C4 on C5, no fracture is identified. Moderate to severe loss of disc height at C3-4, C4-5 C5-6 and C6-7 with moderate to severe canal and foraminal stenosis, outpatient MRI recommended Soft tissues unremarkable. Impression: No acute abnormality. Reviewed, dictated and finalized at location P. Impression: No acute abnormality.
== END 2024-12-22 11:14 | disposition home or self-care (01) ==
LOC: MICIMG 11:14
PROVIDERS: PCP Physician Assistant
DX: M26.632 Articular disc disorder of left temporomandibular joint (principal); M26.621 Arthralgia of right temporomandibular joint
CPT/HCPCS: 72125

== ENCOUNTER 2024-12-29 08:16 | Outpatient (CLI) | payer MEDICARE, OTHER, SELFPAY ==
--- NOTE | ~2024-12-29 | US_ITS ---
US abdomen limited Indication: elevated liver enzymes Comparison: None Technique: Graham-scale and color Doppler images were obtained. Findings: LIVER: Unremarkable, liver contours intact, no lesions. Normal echogenicity. . GALLBLADDER/BILIARY: Post cholecystectomy. CBD 4 mm. [place] sign negative. PANCREAS: Pancreas limited by bowel gas. Right Kidney: The right kidney was not imaged. Impression: No acute abnormality. Reviewed, dictated and finalized at location P. ROLOGIST Impression: No acute abnormality.
== END 2024-12-29 08:17 | disposition home or self-care (01) ==
LOC: MICIMG 08:17
PROVIDERS: PCP Physician Assistant; Visit Provider Physician Assistant
DX: R74.8 Abnormal levels of other serum enzymes (principal)
CPT/HCPCS: 76705